=== PATIENT | female | born 1950 | race Caucasian/White ===

== ENCOUNTER 2020-10-04 10:47 | Inpatient (IN) | payer OTHER, MEDICARE ==
--- OUTSIDE RECORDS SUMMARY | 2020-10-04 10:51 | XMS REPORT | Continuity of Care Document ---
:1950 Author Organization [facility] t Address [address] [place] [address] Care Team Providers Name Role Phone Ignacio Dennis Primary Care Physician POLLY Attending Clinician Unavailable Jorge PINTO, Gene Attending Clinician Tanika Gallegos NP Attending Clinician IAIN CARDENAS Attending Clinician Unavailable PISKLAK Admitting Clinician Unavailable IAIN CARDENAS Admitting Clinician Unavailable Problems Condition Condition Condition Status Onset Resolution Last Treating Co mments Source Name Details Category Date Date Treatment Clinician Date PAD PAD Disease Active [facility]ra 02-27 Kaelyn kes - l artery l artery 00:00: Medica l disease) disease) 00 Center Herpes Herpes Problem Active [facility] Hypokalemi Hypokalemi Problem Active [facility] Pneumoniti Pneumoniti Problem Active [facility] 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 Erythemato Gr oup emeli emeli Knee pain Knee Pain Problem Active [facility] Edema of Edema of Problem Active [facility] [facility] lower Lower da extremity Extremity Medi gregg Group Urgent Urgent Problem Active [facility] desire to Desire to da urinate [facility] Serum Serum Problem Active [facility] creatinine Creatinine da raised [facility] Allergies, Adverse Reactions, Alerts Allergy Allergy Status Severity Reaction(s) Onset Inactive Treating Comm ents Source Name Type Date Date Clinician Ritika Hudsoni [facility] - adverse [facility]: Medical reaction 00 Center s Codeine Allergy Active [facility] PENICILL Allergy Active [facility] to da substanc [facility] Social History Social Habit Start Date Stop Date Quantity Comments Source Sex Assigned At [facility] History [facility] - Alcohol Std Drinks [facility] Tobacco use and 2019-03-02 2019-03-[address] [facility] - exposure 00:00:00 00:00:00 [facility] Center Alcohol intake 2019-03-02 2019-03-02 Current [facility] es - 00:00:00 00:00:00 non-drinker of Medical Ce nter alcohol (finding) History SDOH 2019-02-27 2019-02-27 1 [facility] - Alcohol Frequency 00:00:00 00:00:00 [facility] Center Smoking Status Start Date Stop Date Source Light Tobacco Smoker [facility] Current some day smoker 2019-03-02 00:00:00 [facility] Medications Ordered Filled Start Stop Current Ordering Indication Dosage Frequency Signature Comments Components Source Medication Medication Date Date Medication? Clinician (SIG) Name Name gabapentin 2019-0 Yes 300mg QD Take [address] (NEURONTIN) 8-10 mg by [facility] - 300 MG 09:23: mouth Medical capsule 26 nightly. Center gabapentin 2019-0 Yes 800mg [id number] Take [address] (NEURONTIN) 8-10 [id number] mg by L ukes - 800 MG 09:23: 3D mouth 3 Medical tablet 26 (three) Center times daily. triamterene 2019-0 Yes 1{tbl} QD Take [address] -hydroCHLOR 8-10 tablet by Amy es - Othiazide 09:23: mouth Medical (MAXZIDE-25 26 daily. Center ) 37.5-25 mg per tablet albuterol 2019-0 Yes 1{puff} Inhale [address] HFA 8-10 puff by Bridget - (VENTOLIN 09:23: mouth via Med ical HFA) 90 26 inhaler Center mcg/actuati every 6 on inhaler (six) hours as needed for Wheezing. budesonide 2019-0 Yes 1{puff} Q.5D Inhale [address] (PULMICORT 8-10 puff by Bridget - FLEXHALER) 09:23: mouth via Me dical 90 26 inhaler 2 Center mcg/actuati (two) on inhaler times daily. clopidogrel 2019-0 Yes 75mg QD Take [address] [facility] (PLAVIX) 75 8-10 tablet (75 Kaelyn kes - mg tablet 00:00: mg total) Med ical 00 by mouth Center daily. apixaban 2019-0 Yes 5mg Q.5D Take [address] [facility] (ELIQUIS) 5 8-09 tablet (5 Amy es - mg Tab 00:00: mg total) Medica l tablet 00 by mouth 2 Center (two) times daily. acetaminoph 2019-0 Yes 1{tbl} Take [address] en-codeine 8-09 tablet by Jose s - (TYLENOL 00:00: mouth Medical #4) 300-60 00 every 4 Center mg per (four) tablet hours as needed for Pain. Max Daily Amount: 6 tablets acetaminoph acetaminoph No acetaminop [place] en 300 en 300 hen 300 da mg-codeine mg-codeine mg-codeine Medical 60 mg 60 mg 60 mg Group tablet tablet tablet albuterol albuterol No albuterol [place] sulfate HFA sulfate HFA sulfate da 90 90 HFA 90 Medical mcg/actuati mcg/actuati mcg/actuat Group on aerosol on aerosol ion inhaler inhaler aerosol inhaler alendronate alendronate No alendronat [facility] 35 mg 35 mg e 35 mg da tablet tablet tablet Medical Group alprazolam alprazolam No alprazolam [facility] 0.5 mg 0.5 mg 0.5 mg da tablet tablet tablet Medical Group amoxicillin amoxicillin No amoxicilli [facility] 500 500 n 500 da mg-potassiu mg-potassiu mg-potassi Medical m m um Group clavulanate clavulanate clavulanat 125 mg 125 mg e 125 mg tablet tablet tablet clarithromy clarithromy No clarithrom [facility] marissa 500 mg marissa 500 mg ycin 500 da tablet Take tablet Take mg tablet Medical 1 tablet 1 tablet Take 1 Group every 12 every 12 tablet hours by hours by every 12 oral route oral route hours by for 10 for 10 oral route days. days. for 10 days. clopidogrel clopidogrel No clopidogre [facility] 75 mg 75 mg l 75 mg da tablet tablet tablet Medical Group doxycycline doxycycline No doxycyclin [facility] hyclate 100 hyclate 100 e hyclate da mg tablet mg tablet 100 mg Med ical tablet Group Eliquis 5 Eliquis 5 No Eliquis 5 [facility] mg tablet mg tablet mg tablet da Medical Group esomeprazol esomeprazol No esomeprazo [place] e magnesium e magnesium le d a 40 mg 40 mg magnesium Medical capsule,del capsule,del 40 mg Group ayed ayed capsule,de release release layed Take 1 Take 1 release capsule capsule Take 1 every day every day capsule by oral by oral every day route for route for by oral 30 days. 30 days. route for 30 days. furosemide furosemide No furosemide [facility] 20 mg 20 mg 20 mg da tablet tablet tablet Medical Group gabapentin gabapentin No gabapentin [facility] 300 mg 300 mg 300 mg da capsule capsule capsule Medica l Group gabapentin gabapentin No gabapentin [place] 800 mg 800 mg 800 mg da tablet tablet tablet Medical Group hydrochloro hydrochloro No hydrochlor [facility] thiazide thiazide othiazide da 12.5 mg 12.5 mg 12.5 mg Medica l tablet Take tablet Take tablet Group 1 tablet 1 tablet Take 1 every day every day tablet by oral by oral every day route. route. by oral route. hydrocodone hydrocodone No hydrocodon [facility] 5 5 e 5 da mg-acetamin mg-acetamin mg-acetami Medical ophen 325 ophen 325 nophen 325 Group mg tablet mg tablet mg tablet hydroxychlo hydroxychlo No hydroxychl [facility] roquine 200 roquine 200 oroquine da mg tablet mg tablet 200 mg Med ical Take 1 Take 1 tablet Group tablet tablet Take 1 twice a day twice a day tablet by oral by oral twice a route. route. day by oral route. ibuprofen ibuprofen No ibuprofen [facility] 800 mg 800 mg 800 mg da tablet tablet tablet Medical Group lidocaine lidocaine No lidocaine [facility] 10 mg/mL (1 10 mg/mL (1 10 mg/mL da %) %) (1 %) Medical injection injection injection Group solution solution solution methylpredn methylpredn No methylpred [facility] isolone 4 isolone 4 nisolone 4 da mg tablets mg tablets mg tablets Medical in a dose in a dose in a dose Group pack pack pack metronidazo metronidazo No metronidaz [place] le 500 mg le 500 mg ole 500 mg da tablet Take tablet Take tablet Medical 1 tablet 1 tablet Take 1 Group twice a day twice a day tablet by oral by oral twice a route for route for day by 10 days. 10 days. oral route for 10 days. montelukast montelukast No montelukas [facility] 10 mg 10 mg t 10 mg da tablet tablet tablet Medical Group prednisone prednisone No prednisone [facility] 20 mg 20 mg 20 mg da tablet tablet tablet Medical Group ropinirole ropinirole No ropinirole [facility] 2 mg tablet 2 mg tablet 2 mg d a tablet Medical Group sulfamethox sulfamethox No sulfametho [facility] azole 800 azole 800 xazole 800 da mg-trimetho mg-trimetho mg-trimeth Medical prim 160 mg prim 160 mg oprim 160 Group tablet tablet mg tablet tramadol 50 tramadol 50 No tramadol [facility] mg tablet mg tablet 50 mg da tablet Medical Group triamterene triamterene No triamteren [facility] 37.5 37.5 e 37.5 da mg-hydrochl mg-hydrochl mg-hydroch Medical orothiazide orothiazide lorothiazi Group 25 mg 25 mg de 25 mg tablet tablet tablet Vital Signs Vital Name Observation Time Observation Value Comments Source BP Diastolic 2019-06-15 00:00:00 62 mm[Hg] [facility] Height 2019-06-15 00:00:00 65 [in_i] [facility] BMI (Body Mass 2019-06-15 00:00:00 15 kg/m2 [facility] Medical Index) Group BP Systolic 2019-06-15 00:00:00 132 [facility]Hg[facility] Body Weight 2019-06-15 00:00:00 90 [lb_av[facility] BP Diastolic 2019-04-16 00:00:00 64 mm[facility]Hg[facility] Height 2019-04-16 00:00:00 65 [in_i] [facility] BMI (Body Mass 2019-04-16 00:00:00 15 kg/m2 [facility] Medical Index) Group BP Systolic 2019-04-16 00:00:00 139 mm[Hg] [facility] Body Weight 2019-04-16 00:00:00 90 [lb_av] [facility] Procedures Procedure Date / Time Performed Performing Clinician Sour e Colonoscopy 2019-04-01 00:00:00 [facility] Upper GI Endoscopy 2019-04-01 00:00:00 [facility] Plan of Care Planned Activity Planned Date Details Comments Source Future Scheduled 2020-03-22 INFLUENZA VACCINE (#1) [facility] Test 00:00:00 [code = INFLUENZA Medical Ce nter VACCINE (#1)] Future Scheduled 2018-09-[address] [facility] [facility] - Test 00:00:00 WELLNESS (YEAR 2 or Medical Center FIRST YEAR if no IPPE) [code = MEDICARE ANNUAL WELLNESS (YEAR 2 or FIRST YEAR if no IPPE)] Future Scheduled 2017 PNEUMOCOCCAL 65+ [facility] - Test 00:00:00 (1 of 1 - Medical Center [id number]) [code = PNEUMOCOCCAL 65+ YRS (1 of 1 - [id number] PCV13)] Future Scheduled [address] [facility] - Test 00:00:00 [facility] breast (procedure) [code = 559084870] Future Scheduled [address] [facility] - Test 00:00:00 malignant neoplasm of [facility] colon (procedure) [code = 426361333] Encounters Start End Encounter Admission Attending Care Care Encounter Source Date/Time Date/Time Type Type Clinicians Facility Department ID 2020-08-24 2020-08-26 Inpatient JENNY MATIAS [facility] [id number] [place] 00:00:00 00:00:[address] 2020-04-01 2020-04-01 [facility] [id number] 00:00:00 00:00:00 [facility] [id number] [place] [id number] Professio [phone] [address] 2019-10-27 2019-10-28 [facility] [id number] 09:20:26 08:23:58 ne Visit Watson Bates [id number] [place] [id number] Professio [id number] [address] 2019-06-15 2019-06-15 Stevo GUNDERSON [place] - [id number] M [facility] 00:00:00 00:00:00 Enrico DO: [facility] cam[facility] ybarra [address] [place] [address] - [address] [address] , Ph. [phone] 2019-04-16 2019-04-16 Stevo GUNDERSON [place] - [id number] M [facility] 00:00:00 00:00:00 Enrico DO: [facility] ybarra [address] [place] [address] [address] [address] , Ph. [phone] 2019-03-09 2019-03-09 Office MOODY Gallegos [id number] 14:17:45 15:50:13 Visit Franco AMBULATOR [id number] Cenea Y 0.2.7.2.686 [phone] [id number] Results Test Description Test Time Test Comments Results Result Comments Source Comprehensive metabolic 2000 panel - Serum or Plasma 2019-03 11:12:00 Test Item Value Reference Range Interpretation Comme nts Glucose [Mass/volume] in Serum or Plasma (test code = 230 mg/dL 82-115 H 2345-7) Urea nitrogen [Mass/volume] in Serum or Plasma (test code = 55 mg/d L 8-23 H 3094-0) osmolality calculated, serum (test code = osmolality 293 2 80-300 calculated, serum) creatinine (test code = creatinine) 1.5 mg/dL 0.50-0.90 H glomerular filtration rate (test code = glomerular 34.74 L filtration rate) Urea nitrogen/Creatinine [Mass Ratio] in Serum or Plasma 36.7 12-20 H (test code = 3097-3) sodium level (test code = sodium level) 135 mmol/L 135-145 potassium level (test code = potassium level) 5.9 mmol/L 3.5-5.2 H chloride level (test code = chloride level) 106 mmol/L 98-108 CO2 (test code = CO2) 13 mmol/L 21-32 L anion gap (test code = anion gap) 21.9 mEq/L 12-20 H calcium level (test code = calcium level) 8.7 mg/dL 8.8-10.2 L total protein (test code = total protein) 5.7 g/dL 6.6-8.7 L albumin (test code = albumin) 3.5 g/dL 3.5-5.2 globulin (test code = globulin) 2.2 gm/dL A/G ratio (test code = A/G ratio) 1.6 >1.0 bilirubin,total (test code = bilirubin,total) <0.3 0.0-1.2 AST/SGOT (test code = AST/SGOT) 12 U/L 15-32 L Alanine aminotransferase [Enzymatic activity/volume] in 8 U/L 0-33 Serum or Plasma (test code = 1742-6) Alkaline phosphatase [Enzymatic activity/volume] in Serum or 60 U/L 35-105 Plasma (test code = 6768-6) [facility] [Enzymatic activity/volume] in Serum or [id number] 11:12:00 Test Item Value Reference Range Interpretation Comments creatine kinase (test code = creatine 102 U/L 20-180 kinase) [facility]atriuretic peptide.B prohormone N-Terminal [Mass/volume] in Serum or [id number] 11:12:00 Test Item Value Reference Range Interpretation Comments N-term pro natriuretic peptide 2524 pg/mL 0-125 H (test code = N-term pro natriuretic peptide) [facility] [Mass/volume] in [id number] 11:12:00 Test Item Value Reference Range Interpretation Comments cardiac troponin I (test code = cardiac <0.30 0.0-0.5 troponin I) [facility].MB [Mass/volume] in Serum or Plasma 2019-03-30 11:12:00 Test Item Value Reference Range Interpretation Comments mass creatinine kinase-mb (test 5.3 NG/mL 0.0-3.6 H code = mass creatinine kinase-mb) [facility] [id number] 06:43:00 Test Item Value Reference Range Interpretation Comments SODIUM (BEAKER) 135 meq/L 136-145 L (test code = 381) POTASSIUM (BEAKER) 4.4 meq/L 3.5-5.1 (test code = 379) CHLORIDE (BEAKER) 110 meq/L 98-107 H (test code = 382) CO2 (BEAKER) (test 17 meq/L 22-29 L code = 355) BLOOD UREA NITROGEN 23 mg/dL 7-21 H (BEAKER) (test code = 354) CREATININE (BEAKER) 0.88 mg/dL 0.57-1.25 (test code = 358) GLUCOSE RANDOM 69 mg/dL 70-105 L (BEAKER) (test code = 652) CALCIUM (BEAKER) 8.6 mg/dL 8.4-10.2 (test code = 697) EGFR (BEAKER) (test 64 mL/min/1.73 ESTIMA OG GFR IS code = 1092) sq m NOT ACCURATE CREATININE CLEARANCE IN PREDICTING GLOMERULAR FILTRATION RATE . ESTIMATED GFR I S NOT APPLICABLE FOR DIALYSIS PATIEN TS. CBC (HEMOGRAM ONLY)2019-02-28 05:40:00 Test Item Value Reference Range Interpretation Comments WHITE BLOOD CELL COUNT (BEAKER) 8.1 K/ L 3.5-10.5 (test code = 775) RED BLOOD CELL COUNT (BEAKER) 2.72 M/ L 3.93-5.22 L (test code = 761) HEMOGLOBIN (BEAKER) (test code = 8.6 GM/DL 11.2-15.7 L 410) HEMATOCRIT (BEAKER) (test code = 26.9 % 34.1-44.9 L 411) MEAN CORPUSCULAR VOLUME (BEAKER) 98.9 fL 79.4-94.8 H (test code = 753) MEAN CORPUSCULAR HEMOGLOBIN 31.6 pg 25.6-32.2 (BEAKER) (test code = 751) MEAN CORPUSCULAR HEMOGLOBIN CONC 32.0 GM/DL 32.2-35.5 L (BEAKER) (test code = 752) RED CELL DISTRIBUTION WIDTH 15.5 % 11.7-14.4 H (BEAKER) (test code = 412) PLATELET COUNT (BEAKER) (test 422 K/CU MM 150-450 code = 756) MEAN PLATELET VOLUME (BEAKER) 9.2 fL 9.4-12.3 L (test code = 754) NUCLEATED RED BLOOD CELLS 0 /100 WBC 0-0 (BEAKER) (test code = 413) [id number] 17:06:00 Test Item Value Reference Range Interpretation Comments ACTIVATED CLOTTING TIME 318 sec TEST ED AT [place] [address] ([facility]) (test code = JENNA BOWEN [facility]) [id number] 16:47:00 Test Item Value Reference Range Interpretation Comments ACTIVATED CLOTTING TIME 180 sec TEST ED AT [place] [address] ([place]) (test code = JENNA Penny [place] [address]) [id number]
[2020-10-04 14:29] LABS: Absolute Lymphocytes (CBC) 0.9 K/uL (0.7-4.9); Basophils % 0.4 % (0-1.3); Hematocrit 21.9 % (36.0-45.0); Lymphocytes % 4.7 % (15.3-44.8); RBC Red Blood Cell Count 2.32 M/uL (3.86-4.86)
[2020-10-04] MEDS ORDERED: FENTANYL CITR 100 MCG/2 ML ONE (14:38)
[2020-10-04] MEDS ORDERED: CEFTRIAXONE/SWI 1gm 1 GM/10 ML SYR ONE (14:39)
[2020-10-04] MEDS ORDERED: NA CHLORIDE 0.9% 50 ML ONE (14:39)
[2020-10-04 15:00] LABS: Anisocytosis SLIGHT; Blood Morphology Comment NOTED (NOT SEEN); Platelet Estimate INCR; Polychromasia SLIGHT; Stomatocytes 1+
[2020-10-04 15:02] LABS: Potassium 2.9 mmol/L (3.5-5.1)
--- NOTE | 2020-10-04 15:32 | EDPHYS ---
Physician Documentation [facility] Name: Nancy Carlos Age: 69 yrs Sex: Female : 1950 Arrival Date: 10/04/2020 Time: 10:57 Bed 15 Private MD: Janusz Corral ED Physician HPI: 10/04 15:31 This 69 yrs old Female presents to ER via Wheelchair with complaints of kdr Abnormal Lab Results - low wbc. 15:31 The patient was sent to the ED when it was discovered that her Hgb was low and she was kdr scheduled for surgery (Right AKA) today with Dr. Weber. Onset: The symptoms/episode began/occurred at an unknown time. Severity of symptoms: At their worst the symptoms were moderate severe just prior to arrival, in the emergency department the symptoms are unchanged. The patient has experienced similar episodes in the past, chronically. The patient has been recently seen by a physician: the patient's primary care provider. Historical: - Allergies: 11:14 sulfamethoxazole (bulk); sv 11:14 Bactrim; sv - PMHx: 11:14 COPD; Asthma; Myocardial infarction; Lupus; sv - PSHx: 11:14 toe amputations; cardiac stents; Tubal ligation; sv - Immunization history:: Client reports receiving the 1st dose of the Covid vaccine, Pneumococcal vaccine is up to date, Flu vaccine is up to date. - Social history:: Smoking status: Patient reports the use of cigarette tobacco products, smokes one pack cigarettes per day. ROS: 15:31 Constitutional: Negative for fever, chills, and weight loss, Eyes: Negative for injury, kdr pain, redness, and discharge, Neck: Negative for injury, pain, and swelling, Cardiovascular: Negative for chest pain, palpitations, and edema, Abdomen/GI: Negative for abdominal pain, nausea, vomiting, diarrhea, and constipation, Back: Negative for injury and pain, : Negative for injury, bleeding, discharge, and swelling, Neuro: Negative for headache, weakness, numbness, tingling, and seizure activity. Psych: Negative for depression, anxiety, suicide ideation, homicidal ideation, and hallucinations, Allergy/Immunology: Negative for hives, rash, and allergies, Endocrine: Negative for neck swelling, polydipsia, polyuria, polyphagia, and marked weight changes, Hematologic/Lymphatic: Negative for swollen nodes, abnormal bleeding, and unusual bruising. 15:31 Respiratory: Positive for dyspnea on exertion, shortness of breath, at rest. Exam: 15:31 Constitutional: This is a well developed, well nourished patient who is awake, alert, kdr and in no acute distress. Head/Face: Normocephalic, atraumatic. Eyes: Pupils equal round and reactive to light, extra-ocular motions intact. Lids and lashes normal. Conjunctiva and sclera are non-icteric and not injected. Cornea within normal limits. Periorbital areas with no swelling, redness, or edema. Neck: Trachea midline, no thyromegaly or masses palpated, and no cervical lymphadenopathy. Supple, full range of motion without nuchal rigidity, or vertebral point tenderness. No Meningismus. Chest/axilla: Normal chest wall appearance and motion. Nontender with no deformity. No lesions are appreciated. Cardiovascular: Regular rate and rhythm with a normal S1 and S2. No gallops, murmurs, or rubs. Normal PMI, no JVD. No pulse deficits. Abdomen/GI: Soft, non-tender, with normal bowel sounds. No distension or tympany. No guarding or rebound. No evidence of tenderness throughout. Back: No spinal tenderness. No costovertebral tenderness. Full range of motion. Skin: Warm, dry with normal turgor. Normal color with no rashes, no lesions, and no evidence of cellulitis. Neuro: Awake and alert, GCS 15, oriented to person, place, time, and situation. Cranial nerves II-XII grossly intact. Motor strength 5/5 in all extremities. Sensory grossly intact. Cerebellar exam normal. Normal gait. Psych: Awake, alert, with orientation to person, place and time. Behavior, mood, and affect are within normal limits. 15:31 Respiratory: the patient does not display signs of respiratory distress, Respirations: intercostal retractions, shallow respirations, that is mild, Breath sounds: rales, that are mild, are scattered, decreased breath sounds, are scattered, rhonchi, that are mild, are heard diffusely. 15:57 ECG was reviewed by the Attending Physician. kdr Vital Signs: 11:15 BP 96 / 42; Pulse 80; Resp 16; Temp 98.5; Pulse Ox 95% ; Weight 45.36 kg; Height 5 ft. sv 4 in. (162.56 cm); 14:30 BP 96 / 48; Pulse 79; Resp 17; Pulse Ox 98% on 1 lpm NC; zb 15:14 BP 94 / 44; Pulse 73; Resp 18; Pulse Ox 93% 1 lpm ; zb 16:14 BP 103 / 46; Pulse 93; Resp 16; Pulse Ox 94% on 1 lpm NC; zb 17:14 BP 82 / 35; Pulse 63; Resp 16; Pulse Ox 95% on R/A; zb 17:45 BP 87 / 70; Pulse 81; Resp 18; Pulse Ox 97% on 1 lpm NC; zb 18:16 BP 102 / 75; Pulse 90; Resp 20; Pulse Ox 95% 1 lpm ; zb 18:43 BP 104 / 43; Pulse 98; Resp 18; Pulse Ox 98% on 1 lpm NC; zb 19:00 BP 94 / 42; Pulse 78; Resp 18; Pulse Ox 98% on 2 lpm NC; zb 20:00 BP 101 / 44; Pulse 81; Resp 18; Pulse Ox 91% on R/A; zb 21:00 BP 107 / 45; Pulse 84; Resp 18; Pulse Ox 92% on R/A; zb 22:30 BP 106 / 58; Pulse 81; Resp 20; Pulse Ox 91% on R/A; zb 23:35 BP 105 / 49; Pulse 87; Resp 18; Pulse Ox 94% on R/A; zb 10/05 00:09 BP 111 / 48; Pulse 83; Resp 18; Pulse Ox 94% on R/A; zb 10/04 11:15 Body Mass Index 17.17 (45.36 kg, 162.56 cm) sv MDM: 10/04 15:31 Patient medically screened. kdr 15:31 Data reviewed: vital signs, nurses notes, lab test result(s), radiologic studies. kdr Counseling: I had a detailed discussion with the patient and/or guardian regarding: the historical points, exam findings, and any diagnostic results supporting the discharge/admit diagnosis, lab results, radiology results, the need for further work-up and treatment in the hospital. 10/04 13:43 Order name: CBC with Diff kdr 10/04 13:43 Order name: Chem 7; Complete Time: 15:08 kdr 10/04 13:44 Order name: CBC with Automated Diff; Complete Time: 15:08 EDMS 10/04 13:54 Order name: Type And Screen kdr 10/04 14:41 Order name: Manual Differential; Complete Time: 15:08 EDMS 10/04 15:12 Order name: PRBC kdr 10/04 15:12 Order name: ABO/RH typing EDMS 10/04 15:12 Order name: Antibody Screen EDUT 10/04 15:15 Order name: Bb Add On bd 10/04 19:55 Order name: Blood Culture Adult (2) la1 10/04 19:55 Order name: Procalcitonin la1 10/04 19:55 Order name: Lactate la1 10/04 21:40 Order name: Lactate; Complete Time: 02:36 EDMS 10/04 13:56 Order name: CXR XRAY; Complete Time: 15:55 kdr 10/04 22:06 Order name: Procalcitonin; Complete Time: 02:36 EDMS 10/04 23:14 Order name: Blood Culture EDUT 10/05 06:04 Order name: CBC with Automated Diff EDMS 10/05 06:13 Order name: Lactate EDUT 10/05 06:24 Order name: Procalcitonin EDUT 10/05 06:34 Order name: Comprehensive Metabolic Panel EDUT 10/05 06:34 Order name: Magnesium EDUT 10/04 13:56 Order name: EKG - Nurse/Tech; Complete Time: 14:18 kdr 10/04 14:00 Order name: EKG; Complete Time: 14:01 sv 10/04 16:09 Order name: Labs - recollect needed: recollect t\T\s, lab will come to recollect; bd Complete Time: 16:29 EC:57 Rate is 78 beats/min. Rhythm is regular, Sinus Rhythm with No ectopy. QRS Economy is kdr Normal. AK interval is normal. QRS interval is normal. QT interval is normal. Clinical impression: NSR w/ Non-specific ST/T Changes. Administered Medications: Discontinued: NS 0.9% 1000 ml IV at 75 ml/hr continuous 14:28 Drug: Rocephin - (cefTRIAXone) 1 grams Route: IVPB; Infused Over: 30 mins; Site: right zb antecubital; 14:28 Drug: fentaNYL (PF) 25 mcg Route: IVP; Site: right antecubital; zb 15:30 Drug: fentaNYL (PF) 25 mcg Route: IVP; Site: right antecubital; zb 15:49 Drug: Potassium Chloride 20 mEq Route: IV; Rate: calculated rate; Site: right zb antecubital; 16:29 Drug: Potassium Chloride 40 mEq Route: PO; zb 17:01 Drug: NS 0.9% 1000 ml Route: IV; Rate: 1000 ml; Site: right antecubital; zb 18:09 Drug: vancoMYCIN 1 grams Route: IVPB; Infused Over: 2 hrs; Site: left forearm; zb 18:09 Drug: NS 0.9% 1000 ml Route: IV; Rate: 75 ml/hr; Site: left antecubital; zb 19:11 Drug: NS 0.9% 1000 ml Route: IV; Rate: 1000 ml; Site: left forearm; zb 19:57 Drug: NS 0.9% 1000 ml Route: IV; Rate: 125 ml/hr; Site: right antecubital; zb Disposition: 10/04/20 15:31 Hospitalization ordered by Lebron Last for Inpatient Admission. Preliminary diagnosis are Gangrene, not elsewhere classified, Osteomyelitis, Anemia, unspecified. - Bed requested for [facility] ER HOLD. - Status is Inpatient Admission. sv - Condition is Fair. - Problem is an ongoing problem. - Symptoms are unchanged. Signatures: Dispatcher [employer] EDUT Kristy Forte Stephanie, RN RN sv Woody, Diana, RN RN dw Rittger, Kevin, MD MD kdr Attema, Lee, LINE SERVICE PERSON-C LINE SERVICE PERSON-Annita Sharif RN RN zb Corrections: (The following items were deleted from the chart) 11:15 11:14 Social history: Smoking status: Patient reports the use of cigarette tobacco sv products, smokes one-half pack cigarettes per day, sv 15:19 13:55 Type and Screen ordered. [facility] EDUT 16:45 15:31 Hospitalization Ordered by Lebron Last DO for Inpatient Admission. Preliminary dw diagnosis is Gangrene, not elsewhere classified; Osteomyelitis; Anemia, unspecified. Bed requested for Telemetry/MedSurg (Inpatient). Status is Inpatient Admission. Condition is Fair. Problem is an ongoing problem. Symptoms are unchanged. kdr 19:52 16:45 10/04/2020 15:31 Hospitalization Ordered by Lebron Last DO for Inpatient la1 Admission. Preliminary diagnosis is Gangrene, not elsewhere classified; Osteomyelitis; Anemia, unspecified. Bed requested for Telemetry/MedSurg (Inpatient). Status is Inpatient Admission. Condition is Fair. Problem is an ongoing problem. Symptoms are unchanged. dw 10/05 08:37 10/04 19:52 10/04/2020 15:31 Hospitalization Ordered by Lebron Last DO for Inpatient sv Admission. Preliminary diagnosis is Gangrene, not elsewhere classified; Osteomyelitis; Anemia, unspecified. Bed requested for [facility] ER HOLD. Status is Inpatient Admission. Condition is Fair. Problem is an ongoing problem. Symptoms are unchanged. la1 10/05 11:22 08:37 10/04/2020 15:31 Hospitalization Ordered by Lebron Last DO for Inpatient sv Admission. Preliminary diagnosis is Gangrene, not elsewhere classified; Osteomyelitis; Anemia, unspecified. Bed requested for [facility] ER HOLD. Status is Inpatient Admission. Condition is Fair. Problem is an ongoing problem. Symptoms are unchanged. sv
--- NOTE | 2020-10-04 15:32 | ER ---
Nurse's Notes [facility] Name: Nancy Carlos Age: 69 yrs Sex: Female : 1950 Arrival Date: 10/04/2020 Time: 10:57 Bed 15 Private MD: Janusz Corral Diagnosis: Gangrene, not elsewhere classified;Osteomyelitis;Anemia, unspecified Presentation: 10/04 11:13 Chief complaint: Patient's son or daughter states: Dr Weber asked pt to come to the sv ER because she has a low WBC. Pt had pre-op bloodwork done yesterday for an upcoming surgery to get her RLE amputated. Coronavirus screen: Client denies travel out of the [place] in the last 14 days. At this time, the client does not indicate any symptoms associated with coronavirus-19. Ebola Screen: No symptoms or risks identified at this time. Risk Assessment: Do you want to hurt yourself or someone else? Patient reports no desire to harm self or others. Onset of symptoms was October 04, 2020. 11:13 Method Of Arrival: Wheelchair sv 11:13 Acuity: LUCIAN 3 sv 11:15 Initial Sepsis Screen: Does the patient meet any 2 criteria? No. Patient's initial sv sepsis screen is negative. Does the patient have a suspected source of infection? No. Patient's initial sepsis screen is negative. Historical: - Allergies: 11:14 sulfamethoxazole (bulk); sv 11:14 Bactrim; sv - PMHx: 11:14 COPD; Asthma; Myocardial infarction; Lupus; sv - PSHx: 11:14 toe amputations; cardiac stents; Tubal ligation; sv - Immunization history:: Client reports receiving the 1st dose of the Covid vaccine, Pneumococcal vaccine is up to date, Flu vaccine is up to date. - Social history:: Smoking status: Patient reports the use of cigarette tobacco products, smokes one pack cigarettes per day. Screenin:20 Abuse screen: Denies threats or abuse. Nutritional screening: No deficits noted. jd3 Tuberculosis screening: No symptoms or risk factors identified. Fall Risk Ambulatory Aid- None/Bed Rest/Nurse Assist (0 pts). Gait- Normal/Bed Rest/Wheelchair (0 pts) Mental Status- Oriented to own ability (0 pts). Total Stanley Fall Scale indicates No Risk (0-24 pts). Assessment: 13:20 General: Appears in no apparent distress. comfortable, Behavior is calm, cooperative, zb appropriate for age. Pain: Complains of pain in right leg. Neuro: Level of Consciousness is awake, alert, obeys commands, Oriented to person, place, time. Cardiovascular: Patient's skin is warm and dry. Respiratory: Airway is patent Respiratory effort is even, unlabored, Respiratory pattern is symmetrical, tachypnea. GI: Abdomen is round non-distended. : No signs and/or symptoms were reported regarding the genitourinary system. EENT: No deficits noted. Derm: No signs and/or symptoms reported regarding the dermatologic system. Derm: Skin is fragile, is thin, with poor turgor Skin is dry, Skin is normal, Skin temperature is warm. Musculoskeletal: Range of motion: intact in all extremities. 14:00 Reassessment: Patient appears in no apparent distress at this time. Patient and/or zb family updated on plan of care and expected duration. Pain level reassessed. Patient is alert, oriented x 3, equal unlabored respirations, skin warm/dry/pink. patient remains in pain given pain medication. no changes at this time. 15:00 Reassessment: Patient appears in no apparent distress at this time. Patient and/or zb family updated on plan of care and expected duration. Pain level reassessed. Patient is alert, oriented x 3, equal unlabored respirations, skin warm/dry/pink. 16:00 Reassessment: Patient appears in no apparent distress at this time. Patient and/or zb family updated on plan of care and expected duration. Pain level reassessed. Patient is alert, oriented x 3, equal unlabored respirations, skin warm/dry/pink. patient resting in bed no changes at this time pain managed. 17:00 Reassessment: Patient appears in no apparent distress at this time. Patient and/or zb family updated on plan of care and expected duration. Pain level reassessed. Patient is alert, oriented x 3, equal unlabored respirations, skin warm/dry/pink. patient states pain is managed at this time. sheets changed. 18:00 Reassessment: blood pressure decreasing IV bolus given. zb 18:45 Reassessment: notified dr. darling of patient blood pressure. zb Vital Signs: 11:15 BP 96 / 42; Pulse 80; Resp 16; Temp 98.5; Pulse Ox 95% ; Weight 45.36 kg; Height 5 ft. sv 4 in. (162.56 cm); 14:30 BP 96 / 48; Pulse 79; Resp 17; Pulse Ox 98% on 1 lpm NC; zb 15:14 BP 94 / 44; Pulse 73; Resp 18; Pulse Ox 93% 1 lpm ; zb 16:14 BP 103 / 46; Pulse 93; Resp 16; Pulse Ox 94% on 1 lpm NC; zb 17:14 BP 82 / 35; Pulse 63; Resp 16; Pulse Ox 95% on R/A; zb 17:45 BP 87 / 70; Pulse 81; Resp 18; Pulse Ox 97% on 1 lpm NC; zb 18:16 BP 102 / 75; Pulse 90; Resp 20; Pulse Ox 95% 1 lpm ; zb 18:43 BP 104 / 43; Pulse 98; Resp 18; Pulse Ox 98% on 1 lpm NC; zb 19:00 BP 94 / 42; Pulse 78; Resp 18; Pulse Ox 98% on 2 lpm NC; zb 20:00 BP 101 / 44; Pulse 81; Resp 18; Pulse Ox 91% on R/A; zb 21:00 BP 107 / 45; Pulse 84; Resp 18; Pulse Ox 92% on R/A; zb 22:30 BP 106 / 58; Pulse 81; Resp 20; Pulse Ox 91% on R/A; zb 23:35 BP 105 / 49; Pulse 87; Resp 18; Pulse Ox 94% on R/A; zb 03 00:09 BP 111 / 48; Pulse 83; Resp 18; Pulse Ox 94% on R/A; zb 10/04 11:15 Body Mass Index 17.17 (45.36 kg, 162.56 cm) sv ED Course: 10/04 10:57 Patient arrived in ED. am2 10:57 Janusz Corral MD is Private Physician. am2 11:14 Triage completed. sv 11:15 Arm band placed on. sv 12:26 Jesús Murphy MD is Attending Physician. kdr 12:47 Diane Stauffer RN is Primary Nurse. zb 14:20 EKG done, by ED staff, reviewed by Jesús Murphy MD. jd3 14:37 CXR XRAY In Process Unspecified. EDMS 15:05 Notified ED physician of a critical lab result(s). potassium of 2.9. jd3 15:30 Lebron Darling DO is Hospitalizing Provider. kdr 17:06 Patient has correct armband on for positive identification. Placed in gown. Bed in low zb position. Call light in reach. waiter/waitress dining car on. Pulse ox on. NIBP on. 17:30 Inserted saline lock: 20 gauge in left wrist, using aseptic technique. Flushed left sv with 5 ml normal saline. 10/05 00:30 No provider procedures requiring assistance completed. Patient admitted, IV remains in rr5 place. intact, No redness/swelling at site. 08:49 Attending Physician role handed off by Jesús Murphy MD tw2 08:49 Primary Nurse role handed off by Diane Stauffer RN tw2 09:05 Nickie Caraballo RN is Primary Nurse. vg1 09:29 Georgi Rosa MD is Attending Physician. ps1 Administered Medications: Discontinued: NS 0.9% 1000 ml IV at 75 ml/hr continuous 10/04 14:28 Drug: Rocephin - (cefTRIAXone) 1 grams Route: IVPB; Infused Over: 30 mins; Site: right zb antecubital; 14:28 Drug: fentaNYL (PF) 25 mcg Route: IVP; Site: right antecubital; zb 15:30 Drug: fentaNYL (PF) 25 mcg Route: IVP; Site: right antecubital; zb 15:49 Drug: Potassium Chloride 20 mEq Route: IV; Rate: calculated rate; Site: right zb antecubital; 16:29 Drug: Potassium Chloride 40 mEq Route: PO; zb 17:01 Drug: NS 0.9% 1000 ml Route: IV; Rate: 1000 ml; Site: right antecubital; zb 18:09 Drug: vancoMYCIN 1 grams Route: IVPB; Infused Over: 2 hrs; Site: left forearm; zb 18:09 Drug: NS 0.9% 1000 ml Route: IV; Rate: 75 ml/hr; Site: left antecubital; zb 19:11 Drug: NS 0.9% 1000 ml Route: IV; Rate: 1000 ml; Site: left forearm; zb 19:57 Drug: NS 0.9% 1000 ml Route: IV; Rate: 125 ml/hr; Site: right antecubital; zb Medication: 10/05 01:40 Blood products: PRBCs X 1 unit given. wrist band [id number] unit # [id number] PRBC rr5 type a positive exp 10/25/2020, double cheked by diane RN See transfusion record. Outcome: 10/04 15:31 Decision to Hospitalize by Provider. kdr 10/05 00:30 Admitted to ER Hold. Please see [facility] for further documentation. rr5 Condition: stable Instructed on the need for admit. 08:37 Patient left the ED. sv 11:22 Patient left the ED. sv Signatures: Dispatcher [employer] Lara Jurado, RN RN sv Jesús Murphy MD MD kdr Wise, Tara, RN RN tw2 Marichuy White Jonathon RN RN jd3 Georgi Rosa MD MD ps1 Roque, Raymond, RN RN rr5 Nickie Caraballo RN RN [email or web address] Diane Stauffer RN RN zb Corrections: (The following items were deleted from the chart) 10/04 11:15 11:14 Social history: Smoking status: Patient reports the use of cigarette tobacco sv products, smokes one-half pack cigarettes per day, sv
--- NOTE | 2020-10-04 15:51 | RAD REPORT ---
EXAM DESCRIPTION: RAD - Chest Single View - 10/04/2020 2:37 pm CLINICAL HISTORY: Pre-op for right AKA Chest pain. COMPARISON: Chest Pa And Lat (2 Views) dated 10/03/2020 FINDINGS: Portable technique limits examination quality. The lungs are mildly emphysematous grossly clear. The heart is normal in size. No displaced fractures . IMPRESSION: Mild diffuse COPD.
[2020-10-04] MEDS ORDERED: KCL 20 MEQ/100 mL IVPB 20 MEQ/100 ML BAG IV ONE (15:58)
[2020-10-04] MEDS ORDERED: POTASSIUM CL SA 10 MEQ TAB PO ONE (15:59)
[2020-10-04] MEDS ORDERED: VANCOMYCIN/NS 1 gm 1 GM/250 ML BAG IV ONE (16:00)
--- NOTE | 2020-10-04 16:25 | P.HP ---
Certification for Inpatient Patient admitted to: Inpatient With expected LOS: >2 Midnights Patient will require the following post-hospital care: Other (home vs SNF) Practitioner: I am a practitioner with admitting privileges, knowledge of patient current condition, hospital course, and medical plan of care. Services: Services provided to patient in accordance with Admission requirements found in Title 42 Section 412.3 of the Code of Federal Regulations Patient History Date of Service: 10/04/20 Primary Care Provider: Dr. Corral; Surgery-Dr. Weber Reason for admission: Abnormal lab History of Present Illness: 69 yo CF with history of osteomyelitis to the right foot. She has been seen by Surgery-Dr. Weber for potential surgery-above knee amputation within the next couple of days. She had lab drawn recently and found to have some abnormal lab at which point she was told to go to the ER to address. She denies any fever or chills. She has pain to the right lower ext. No nausea, vomiting and abdominal pain. In the ER she was found to be anemic with hemoglobin of 7.3. Prior hemoglobin was around 6. WBC was 19. NA 139, K 2.9, BUN 34, creatinine 1.56 and GFR was 33. BP low. Patient appears dehydrated. Patient given IV antibiotic therapy in the emergency room. ER physician spoke to surgeon. Surgeon desires patient to be admitted for treatment an eventual surgery. Allergies sulfamethoxazole [From Bactrim] Allergy (Verified 10/03/20 16:35) Hives, throat swell trimethoprim [From Bactrim] Allergy (Verified 10/03/20 16:35) Hives, throat swell Home medications list reviewed: Yes Home Medications: Albuterol Inhaler [Ventolin Inhaler] 2 puff IH Q6H PRN 10/03/20 Baclofen 10 mg PO BID 10/03/20 Budesonide [Pulmicort] 1 mg IH DAILY 10/03/20 Budesonide/Formoterol Fumarate [Symbicort 160-4.5 Mcg Inhaler] 2 puff IH BID 10/03/20 Gabapentin 600 mg PO BID 10/03/20 Hydrocodone 5/APAP 325 [Lamont 5/325] 1 tab PO Q6H PRN 10/03/20 Hydroxychloroquine [Plaquenil] 200 mg PO DAILY 10/03/20 Mupirocin Oint [Bactroban 2% Ointment] 22 gm TP DAILY 10/03/20 Ondansetron [Zuplenz] 4 mg PO BID 10/03/20 Perforomist 2 ml NEB PRN PRN 10/03/20 Ropinirole HCl [Requip] 1 mg PO BEDTIME 10/03/20 clindamycin HCL [Clindamycin HCl] 300 mg PO DAILY 10/03/20 - Past Medical/Surgical History Diabetic: No -: COPD -: Lupus -: Anemia of Chronic disease -: Chronic renal disease -: Tobacco abuse -: TOE AMPUTATION ON RIGHT FOOT -: TUBAL LIGATION -: STENTS IN RIGHT FEMORAL ARTERY -: CARDIAC STENT Psychosocial/ Personal History: Patient lives at home - Family History Father -: Heart disease Mother Notes: AORTIC ANEURYSM - Social History Smoking Status: Heavy Tobacco smoker (>10 cigarettes/day) Smoking therapy provided: Yes Patient receptive to therapy: Yes Alcohol use: No CD- Drugs: No Caffeine use: Yes Place of Residence: Home Review of Systems General: Weakness, Malaise, As per HPI Eyes: Unremarkable ENT: Unremarkable Respiratory: Unremarkable Cardiovascular: Unremarkable Gastrointestinal: Unremarkable Genitourinary: Unremarkable Musculoskeletal: As per HPI Integumentary: As per HPI Neurological: Unremarkable Lymphatics: Unremarkable Physical Examination - Physical Exam General: Alert, In no apparent distress, Oriented x3, Cooperative, Cachectic, Demented, Other (Patient is not well kept) HEENT: Atraumatic, Other (muscle wasting noted) Neck: Supple Respiratory: Clear to auscultation bilaterally, Normal air movement Cardiovascular: Normal pulses, Regular rate/rhythm Gastrointestinal: Normal bowel sounds, Non-distended, No tenderness, No masses, No rebound, No guarding Integumentary: Other (muscle wasting noted throughout. some chronic changes to the lower ext. Bandage in place. Some gangrenous chnages to the toes. Prior right great toe amputation. ) Neurological: Normal speech, Normal strength at 5/5 x4 extr, Normal tone, Normal affect - Studies Laboratory Data (last 24 hrs) 10/04/20 14:16: Sodium 139, Potassium 2.9 L*, BUN 34 H, Creatinine 1.56 H, Glucose 123 H 10/04/20 14:16: WBC 19.10 H, Hgb 7.3 L*, Hct 21.9 L, Plt Count 471 H Assessment and Plan - Plan Impression: Right osteomyelitis and gangrene to the foot Acute on chronic renal failure stage 3 Anemia of chronic disease COPD Tobacco abuse Plan: Right osteomyelitis and gangrene to the foot: Patient will be admitted for further evaluation and treatment. ER spoke to surgery on patient. Will continue with IV vancomycin and cefepime. Will also start IV fluids. Continue DVT prophylaxis. Blood cultures obtained. Will discuss with surgery as patient is to have above knee amputation. This will likely occur tomorrow. Will keep the patient NPO after midnight. Nephrology consulted to address acute on chronic renal disease. Need to review and restart home medications. Will provide medication for pain. Will need to determine plan of care after surgery which may include SNF vs home at discharge. Acute on chronic renal failure stage 3: Start IV fluids. Will monitor this closely. Await recommendations by nephrology. Anemia of chronic disease: Will give 1 unit of blood in preparation for surgery tomorrow. COPD: Will need to obtain home medication and restart. Tobacco abuse: Provide nicotine patch. Discharge Plan: Other (SNF vs Home) Plan to discharge in: Greater than 2 days - Advance Directives Does patient have a Living Will: No Does patient have a Durable POA for Healthcare: Yes - Code Status/Comfort Care Code Status Assessed: Yes (patient is full code) Time Spent Managing Pts Care (In Minutes): 55
[2020-10-04] MEDS ORDERED: NA CHLORIDE 0.9% 2,000 ML ONE (17:14)
[2020-10-04] MEDS ORDERED: NA CHLORIDE 0.9% 1,000 ML ONE (19:18)
--- NOTE | 2020-10-04 21:52 | CON ---
Date of Consultation: 10/04/2020 Brief Hpi: The patient is a 69-year-old female known to me from recently being seen in [facility] with significant osteomyelitis of the right foot. She had been treating this for severa l years without any significant improvement. She had multiple endovascular procedures including sten ting, ballooning, angioplasties, and attempts to revascularize this right lower extremity, but contin ued to have poor blood supply. As such, I spoke to her endovascular radiologist, Dr. Zheng and ultim ately we discussed that she had essentially no flow to the popliteal and essentially at the level of the mid SFA the cutoff of blood supply was noted at this point. She had been seen apparently for pos sible revascularization, but did not have any good options for graft revascularization. As such with a chronic nonhealing wound and severe pain, we opted to move forward with [id number] amputation. I discussed the risks, benefits, and alternatives. The patient has been seen by outpatient clinics and prepared for surgery. However, during the preop workup, her hemoglobin was noted to come back i n the 6 range and her white blood cell count was elevated significantly. As such[facility] come to the ER immediately either via 911 emergency call or to be brought in b y private vehicle. She opted to stay home on medication and came in just several hours ago to the em ergency room and I was notified. Past Medical History: Significant for COPD, lupus, anemia of chronic disease, chronic renal disease, tobacco abuse, peripheral artery disease. Past Surgical History: Includes toe amputation of the right foot, tubal ligation, multiple stents in the right lower extremity, cardiac stents. Allergies: SULFA/BACTRIM. Home Medications: Include Ventolin, baclofen, Pulmicort, Symbicort, gabapentin, Sarepta, Plaquenil, Ba ctroban, ondansetron p.o., Perforomist, Requip, clindamycin. Family History: Significant for heart disease in her father. Mother has no aortic aneurysm. Social History: She has a greater than 3 pack per day smoking history, heavy tobacco use for multipl e years. She denies alcohol or recreational drug use. Review of Systems: Ten-point review of systems other than HPI, she has weakness, fatigue and malaise as described. Othe rwise, she has no complaints at this point. Physical Examination: General: At the time of my examination, she is awake, alert, and oriented. She appears somewhat fra il and thin. Psychiatric: She is appropriate. Conversive. HEENT: She is normocephalic. Her sclerae are anicteric. Mucous membranes are somewhat dry. Oropha rynx was otherwise clear with poor dentition. Neck: Supple without JVD. Chest: Normal expansion and excursion. Cardiovascular: Slightly tachycardic. Abdomen: Soft. Extremities: Focused examination of the extremities, she continues to have a chronic osteomyelitic t ype wound of the right foot, but there is no superficial evidence of cellulitis extending beyond the foot. Skin: Otherwise warm and dry. Laboratory Data: Her white blood cell count was 19.1, hemoglobin 7.3, hematocrit of 21.9, platelet c ount 471. Her neutrophils are 87%. Her sodium 139, potassium 2.9, chloride 108, carbon dioxide 23, BUN 34, creatinine 1.5, glucose was 123. She had imaging performed, which included chest x-ray, indra hughes read as mild diffuse COPD. Assessment And Plan: This is a 69-year-old female who comes in with anemia as well as elevated white blood cell count, osteomyelitis of the right foot, previously planned for an ewtbd-gqv-yomq amputati on for tomorrow. 1.IV fluid hydration. 2.Nephrology consultation. 3.Wound care and elevation in anticipation of possible surgery tomorrow. If the patient is medicall y cleared for surgical intervention after receiving transfusion and being medically optimized, we billy l plan for surgery with the previously planned [id number] amputation of the right lower extremity . However, if for any reason she is not deemed appropriate for operative intervention, we will delay the case until patient is optimized from medical standpoint. I have discussed the risks, benefits, and alternatives of the above stated plan. The patient agrees to proceed as indicated. TK/MODL Voice ID: [id number] Report ID: [id number]
--- NOTE | 2020-10-04 22:15 | P.CNS ---
Date of Consult: 10/04/20 Reason for Consult: ARNAUD/ CKD Requesting Physician: Lebron Last Primary Care Provider: Dr. Corral; Surgery-Dr. Weber Chief Complaint: Abnormal lab History of Present Illness: 69 yo CF with history of osteomyelitis to the right foot. She has been seen by Surgery-Dr. Weber for potential surgery-above knee amputation within the next couple of days. She had lab drawn recently and found to have some abnormal lab at which point she was told to go to the ER to address. She denies any fever or chills. She has pain to the right lower ext. No nausea, vomiting and abdominal pain. Allergies sulfamethoxazole [From Bactrim] Allergy (Verified 10/03/20 16:35) Hives, throat swell trimethoprim [From Bactrim] Allergy (Verified 10/03/20 16:35) Hives, throat swell Home medications list reviewed: Yes Home Medications: Albuterol Inhaler [Ventolin Inhaler] 2 puff IH Q6H PRN 10/03/20 Baclofen 10 mg PO BID 10/03/20 Budesonide [Pulmicort] 1 mg IH DAILY 10/03/20 Budesonide/Formoterol Fumarate [Symbicort 160-4.5 Mcg Inhaler] 2 puff IH BID 10/03/20 Gabapentin 600 mg PO BID 10/03/20 Hydrocodone 5/APAP 325 [Dahlgren 5/325] 1 tab PO Q6H PRN 10/03/20 Hydroxychloroquine [Plaquenil] 200 mg PO DAILY 10/03/20 Ondansetron [Zuplenz] 4 mg PO DAILY 10/03/20 Perforomist 2 ml NEB PRN PRN 10/03/20 Ropinirole HCl [Requip] 1 mg PO BID 10/03/20 - Past Medical/Surgical History Diabetic: No -: COPD -: Lupus -: Anemia of Chronic disease -: Chronic renal disease -: Tobacco abuse -: TOE AMPUTATION ON RIGHT FOOT -: TUBAL LIGATION -: STENTS IN RIGHT FEMORAL ARTERY -: CARDIAC STENT Psychosocial/ Personal History: Patient lives at home - Family History Father Medical History: Heart disease Mother Notes: AORTIC ANEURYSM - Social History Alcohol use: No CD- Drugs: No Caffeine use: Yes Place of Residence: Home Review of Systems 10-point ROS is otherwise unremarkable General: Weakness, Malaise Respiratory: Dry Integumentary: Lesions Neurological: Weakness Physical Examination General: Oriented x3, Cooperative HEENT: Atraumatic Neck: Supple Respiratory: Clear to auscultation bilaterally Cardiovascular: No edema, Regular rate/rhythm Gastrointestinal: Soft and benign, Non-distended Musculoskeletal: No clubbing, No contractures Integumentary: No rashes, No cyanosis, Skin breakdown Neurological: Normal speech Laboratory Data (last 24 hrs) 10/04/20 14:16: Sodium 139, Potassium 2.9 L*, BUN 34 H, Creatinine 1.56 H, Glucose 123 H 10/04/20 14:16: WBC 19.10 H, Hgb 7.3 L*, Hct 21.9 L, Plt Count 471 H Imagings Data: EXAM DESCRIPTION: RAD - Chest Single View - 10/04/2020 2:37 pm CLINICAL HISTORY: Pre-op for right AKA Chest pain. COMPARISON: Chest Pa And Lat (2 Views) dated 10/03/2020 FINDINGS: Portable technique limits examination quality. The lungs are mildly emphysematous grossly clear. The heart is normal in size. No displaced fractures. IMPRESSION: Mild diffuse COPD. Conclusions/Impression: A/P: Continue the current POC and Medications other than the changes listed. AM Labs PRN. Recommend daily weight. Please see the orders for complete details. ARNAUD in the setting of hypotension and hypovolemia CKD III -Continue IVF with NS -No NSAIDs Hypokalemia -Replete potassium IFG -Consider RISS Anemia in chronic illness -Transfuse PRBC Osteomyelitis of the right foot with septic shock -Continue IVF -IVF bolus for hypotension -Continue Cefepime and Vancomycin -Follow up with surgery for planned AKA Case reviewed with Amilcar Borrero. Thank you kindly for the consultation.
[2020-10-04] MEDS: NA CHLORIDE 0.9% 1,000 ML IV SCH (22:54)
[2020-10-04] MEDS ORDERED: ALBUTEROL 2.5 MG/3 ML NEB SOL NEB PRN (22:54)
[2020-10-04] MEDS: HEPARIN 5000 UNIT/ML 1 ML VIAL SQ SCH (22:54)
[2020-10-04] MEDS ORDERED: ONDANSETRON 4 MG/2 ML VIAL IV PRN (22:54)
[2020-10-04] MEDS: ARFORMOTEROL TARTRATE 15 MCG/2 ML VIAL.NEB NEB SCH (22:54)
[2020-10-04] MEDS ORDERED: ACETAMINOPHEN 500 MG TAB PO PRN (22:54)
[2020-10-05] MEDS: TRAMADOL HCL 50 MG TAB PO PRN ×2 (00:26→22:35)
[2020-10-05] MEDS ORDERED: TRAMADOL HCL 50 MG TAB ONE (00:42)
[2020-10-05 01:19] VITALS: BMI 17.2
[2020-10-05] MEDS ORDERED: HEPARIN 5000 UNIT/ML 1 ML VIAL ONE (01:38)
[2020-10-05] MEDS ORDERED: NA CHLORIDE 0.9% 250 ML ONE ×3 (01:38→12:05)
[2020-10-05] MEDS ORDERED: NA CHLORIDE 0.9% 1,000 ML ONE (01:42)
--- NOTE | 2020-10-05 04:33 | EKG ---
Test Date: 2020-10-04 Test Time: 14:15:03 School Bus Driver/Mechanic: TANJA MEASUREMENT RESULTS: Intervals: Rate: 79 VT: 126 QRSD: 94 QT: 410 QTc: 470 [place]: P: 10 VT: 126 QRS: 25 T: 20 INTERPRETIVE STATEMENTS: Normal sinus rhythm Nonspecific ST and T wave abnormality Abnormal ECG Compared to ECG 10/03/2020 16:25:42 No significant changes Electronically Signed On 10-05-20 04:32:15 CDT by Ariel Del Rio
[2020-10-05] MEDS: NA CHLORIDE 0.9% 1,000 ML IV SCH ×3 (05:00→19:55)
--- NOTE | 2020-10-05 05:30 | P.INFCA ---
Sepsis Focused Assessment - Focused Assessment Complete? Sepsis Focused Assessment Completed?: Yes - Sepsis Screen Result Severe Sepsis: Positive Septic Shock: Negative - Evaluation Current stage of sepsis: Severe sepsis - Vital Signs Reviewed: Yes Respiratory Rate: 16 O2 Sat by Pulse Oximetry: 98 - Examination Date exam was performed: 10/04/20 Time exam was performed: 20:00 Heart: Regular rate/rhythm Lungs: Clear bilaterally Peripheral pulses: 2+ Slightly diminished Peripheral pulse location: Radial Capillary refill: <2 Seconds Skin examination: Normal turgor
[2020-10-05 05:43] LABS: Absolute Lymphocytes (CBC) 1.2 K/uL (0.7-4.9); Basophils % 0.2 % (0-1.3); Hematocrit 21.7 % (36.0-45.0); MPV 8.4 fL (7.6-11.3)
[2020-10-05] MEDS: PANTOPRAZOLE 40MG TABLET PO SCH (06:30)
[2020-10-05 06:34] LABS: Albumin 2.2 g/dL (3.4-5.0); Bilirubin Total 0.4 mg/dL (0.2-1.0); Potassium 3.4 mmol/L (3.5-5.1); Protein, Total 5.7 g/dL (6.4-8.2)
[2020-10-05] MEDS ORDERED: PANTOPRAZOLE 40MG TABLET PO ONE (06:42)
[2020-10-05] MEDS: ARFORMOTEROL TARTRATE 15 MCG/2 ML VIAL.NEB NEB SCH ×2 (08:00→19:20)
[2020-10-05] MEDS ORDERED: KCL 20 MEQ/100 mL IVPB 20 MEQ/100 ML BAG IV SCH (08:00)
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
[2020-10-05] MEDS: HEPARIN 5000 UNIT/ML 1 ML VIAL SQ SCH (09:00)
[2020-10-05] MEDS ORDERED: CEFEPIME 1 GM/VIAL IV SCH (09:00)
[2020-10-05] MEDS: CEFEPIME/SWI 1gm 10 ML IV SCH (09:00)
[2020-10-05] MEDS ORDERED: VANCOMYCIN 1 GM in NA CHLORIDE 0.9% 500 ML IVPB SCH (09:00)
[2020-10-05] MEDS ORDERED: FENTANYL CITR 100 MCG/2 ML ONE (11:20)
[2020-10-05] MEDS ORDERED: LIDOCAINE 1% MPF 5 ML VIAL ONE (11:20)
[2020-10-05] MEDS ORDERED: propofoL 200 MG/20 ML VIAL IV ONE (11:20)
[2020-10-05] MEDS ORDERED: NS 0.9% VIAL 10 ML ONE (11:56)
[2020-10-05] MEDS ORDERED: EPHEDRINE SULF 50 MG/ML VIAL ONE (11:56)
[2020-10-05] MEDS ORDERED: DIPHENHYDRAMINE 50 MG/ML VIAL ONE (12:08)
[2020-10-05] MEDS ORDERED: LIDOCAINE 1% MPF 30 ML VIAL ONE (12:09)
[2020-10-05 13:11] LABS: Platelet Estimate ADEQ; Platelets, Giant PRESENT; White Blood Cell Scan OK (OK)
[2020-10-05 13:12] LABS: Blood Morphology Comment NOT SEEN (NOT SEEN)
--- NOTE | 2020-10-05 13:29 | P.OP ---
Publications Sales Representative: Lucille Castillo Preoperative diagnosis: RIGHT leg osteomyelitis and peripheral artery disease Postoperative diagnosis: RIGHT leg osteomyelitis and peripheral artery disease Primary procedure: RIGHT Above knee amputation Anesthesia: Spinal + Local Estimated blood loss: <50cc Specimen: right lower extremity Findings: calcified vessels, stents in place in SFA / Popleteil Complications: None Transferred to: Recovery Room Condition: Good
[2020-10-05] MEDS ORDERED: FUROSEMIDE 20 MG/ 2ML VIAL IV ONE (14:14)
[2020-10-05] MEDS: HYDROCODONE/APAP 7.5/325 MG TAB PO PRN (15:05)
[2020-10-05] MEDS: NICOTINE 21 MG/PAT TD SCH (15:07)
--- NOTE | 2020-10-05 16:49 | EKG ---
Test Date: 2020-10-04 Test Time: 14:16:05 Digital Color Press Operator: TANJA MEASUREMENT RESULTS: Intervals: Rate: 78 [place]: 140 QRSD: 90 QT: 340 QTc: 387 [place]: P: 69 [place]: 140 QRS: 25 T: 167 INTERPRETIVE STATEMENTS: Normal sinus rhythm Nonspecific T wave abnormality Abnormal ECG Compared to ECG 10/04/2020 14:15:03 T-wave abnormality now present ST (T wave) deviation no longer present Electronically Signed On 10-05-20 16:47:51 CDT by Ariel Del Rio
[2020-10-05 17:14] LABS: Hematocrit 29.3 % (36.0-45.0)
[2020-10-05] MEDS ORDERED: POTASSIUM 25 MEQ EFFERV TAB PO ONE (17:27)
[2020-10-05] MEDS: MORPHINE 2 MG/ML SYR IV PRN (23:48)
--- NOTE | 2020-10-06 00:52 | OP ---
Date of Procedure: 10/05/2020 Surgeon: Dequan Weber MD, Engraver [employer]: Lucille Castillo. Preoperative Diagnosis: Right leg osteomyelitis and peripheral arterial disease. Postoperative Diagnosis: Right leg osteomyelitis and peripheral arterial disease. Procedure: Right above the knee amputation. Anesthesia: Spinal plus local. Estimated Blood Loss: Less than 50 cc. Specimen: Right lower extremity. Findings: Calcified vessels, stent in place in the superficial femoral artery/popliteal arteries. Complications: None. Disposition: The patient transferred to recovery room in good condition. Brief Hpi: The patient is a 69-year-old female with significant peripheral arterial disease who had been seen in Wound Care for several years with a nonhealing wound and osteomyelitis of the right foot . She had multiple endovascular procedures to attempt to revascularize her lower extremity including multiple stents placed throughout the superficial femoral artery. I had a conversation with her end ovascular radiologist who had placed her vascular access and stated that she had essentially shutdown of these with nothing but collateral flow below the level of the mid SFA. He had attempted multiple revascularization attempts and did not feel she was a good candidate for any attempt at jump bypass graft due to no sufficient landing zone for bypass, and as such, she was referred to me for an amputa tion. She was thought to be a poor candidate for a [id number] amputation as her blood supply is very poor below the knee. As such, we opted to discuss with the patient and her above the kn ee amputation, which she agreed to proceed with. She had been in chronic pain for some long period o f time and was very despondent due to the level of the pain she had had and significant peripheral ar terial disease. However, she continued to smoke heavily greater than, she states, between 2 and 3 pa cks of cigarettes per day. As such, she was deemed appropriate for operative intervention. She was actually admitted to the hospital after missing a preoperative visit as I referred her to the emergen cy room when she was discovered to have a hemoglobin of 6.5 and an elevated white blood cell count. Therefore, she was brought in as an inpatient, optimized in the perioperative period and taken to the operating room today. Procedure In Detail: After patient was brought to the operating room, she was prepped and draped in the usual sterile fashion after adequate anesthesia was achieved. I opted for approximately 3 to 4 c m above the popliteal bone as an initial demarcation part portion for the skin mapping. I performed a marking of the skin for a fishmouth type incision by demarcating the area after the patient had rec eived her spinal anesthesia and had been verified to be insensate at this level. I then used a 10 bl anastasiia down to subcutaneous tissues achieving meticulous hemostasis using electrocautery. The sciatic v ein was encircled and tied off on the proximal distal aspects with the 3-0 silk sutures and ligated. The dissection continued down circumferentially around through the subcutaneous tissues to the muscl e plane. I began first by the anterior medial muscle, anterior quadriceps muscle compartment using e lectrocautery. I dissected down through this meticulously with good hemostasis on the anterior media l compartment. I ultimately dissected down to the level of the SFA/popliteal artery. It was found t o be quite firm and rigid and had very minimal pulsatile effect to it. As such, it appeared to be so mewhat occluded, although I suspect a stent was evident in this area due to the firmness and easily p alpability of this area and the inflammatory change and scar tissue around the artery. I vesta tripp dissected and skeletonized the artery SFA and the SFV and encircled these 2 structures with in itially a 0 silk tie. At this point after the proximal distal control was achieved with simple sutur es, I placed clamps on the proximal distal aspect and ligated the structure. It was quite difficult to cut as such a stent was appreciated inside this lumen. It was a metallic type stent. As such, I dissected higher up in this area until the stent was not evident in this area, but the patient had pa lpable stents evident quite proximally and as such I opted not to continue chasing these stents. At this point, I ligated the SFA/popliteal artery at a higher level after clamping it appropriately and running a 0 Prolene suture in a running fashion to double ligate the structure. It was once again li gated at this point and the SFV was then encircled and tied off using 0 silk sutures without evidence of complication. I then continued the dissection in the posterior compartment using a Soo knife and removed the posterior tissues protecting the skin flaps throughout. I then prepared the specimen for bone saw at this point. I sized the bone for appropriate skin flap and using the power bone saw , I cut through the femur in a straight fashion and after this was removed, I sent the lower extremit y off for pathologic examination. I then proceeded to bevel the anterior surface of the femur and us ed a rasp to smooth this area out until it was nice and smoothed with rounded edges and bevelling cir cumferentially around the femoral incision. At this point, the wound was copiously irrigated multipl e times until completely clear and cleansed. No additional hemostatic measures were required. I fou nd the sciatic nerve and dissected it proximally and did a high ligation on this using a 0 silk tie a nd I instilled lidocaine in the proximal aspect of this sciatic nerve. At this point, I irrigated th e area once again and checked to ensure that the area was clean without any additional maneuvers requ ired. At this point, no hemostatic maneuvers were required for . Sciatic nerve was ligated. . At this point, I reapproximated the deep tissue planes/muscu lar planes by reapproximating the fascia over the bone of the femur using interrupted 2-0 silk suture s and when the plane was reapproximated appropriately, I closed the deep dermal plane with interrupte d 3-0 Vicryls over the top and irrigated the area once again and then closed the skin with elisabet. This was a tension-free closure. A sterile dressing was then applied to the lower extremity and the patient had an immobilizer placed. The patient tolerated the procedure well without evidence of comp lication and was transferred to PACU in good condition. All counts were correct at the end of the ca se. TK/MODL Voice ID: [id number] Report ID: [id number]
[2020-10-06] MEDS: HYDROCODONE/APAP 7.5/325 MG TAB PO PRN ×4 (01:40→20:14)
[2020-10-06] MEDS: KCL 20 MEQ/100 mL IVPB 20 MEQ/100 ML BAG IV SCH ×3 (01:40→07:49)
[2020-10-06 04:44] LABS: Absolute Lymphocytes (CBC) 1.3 K/uL (0.7-4.9); Basophils % 0.4 % (0-1.3); Hematocrit 26.1 % (36.0-45.0); Lymphocytes % 7.4 % (15.3-44.8); MPV 8.6 fL (7.6-11.3); RBC Red Blood Cell Count 2.87 M/uL (3.86-4.86)
[2020-10-06 05:01] LABS: ALT/SGPT 20 U/L (12-78); AST/SGOT 27 U/L (15-37); Albumin 1.9 g/dL (3.4-5.0); BUN Blood Urea Nitrogen 14 mg/dL (7-18); Bicarbonate 22 mmol/L (21-32); Bilirubin Total 0.5 mg/dL (0.2-1.0); Glucose Level 102 mg/dL (74-106); Magnesium 1.8 mg/dL (1.8-2.4); Protein, Total 5.4 g/dL (6.4-8.2); Sodium Level 143 mmol/L (136-145)
[2020-10-06 05:26] LABS: Alkaline Phosphatase ND U/L (45-117)
[2020-10-06] MEDS: MORPHINE 2 MG/ML SYR IV PRN (05:39)
[2020-10-06] MEDS: PANTOPRAZOLE 40MG TABLET PO SCH (05:39)
[2020-10-06] MEDS: NA CHLORIDE 0.9% 1,000 ML IV SCH (05:40)
[2020-10-06] MEDS ORDERED: VANCOMYCIN 750 MG in NA CHLORIDE 0.9% 150 ML IVPB SCH ×4 (06:00)
[2020-10-06] MEDS: TRAMADOL HCL 50 MG TAB PO PRN (06:43)
[2020-10-06] MEDS: NICOTINE 21 MG/PAT TD SCH (07:50)
--- NOTE | 2020-10-06 07:50 | P.PN ---
Subjective Date of Service: 10/06/20 Primary Care Provider: Dr. Corral; Surgery-Dr. Weber Chief Complaint: Abnormal lab Subjective: Improving, Doing well Physical Examination - Vital Signs Temperature: 99.1 F Blood Pressure: 137/56 Pulse: 67 Respirations: 20 Pulse Ox (%): 93 Assessment & Plan Discharge Plan: Other (jail facility) Plan to discharge in: 48 Hours Physician Review Additional Text: Physical exam: Patient doing well. Pain well controlled. Patient had above knee amputation of the right extremity yesterday. Heart: Regular rate rhythm Lungs: Clear to auscultation Abdomen: Soft nontender nondistended Extremities: Patient had right above knee amputation. Bandage in place. Patient doing well. Impression: Severe sepsis with right osteomyelitis of the foot with underlying PVD status post right above knee amputation Acute on chronic renal failure stage 3 with hypokalemia and dehydration Anemia of chronic disease COPD Tobacco abuse Plan: Severe sepsis with right osteomyelitis of the foot with underlying PVD status post right above knee amputation: Patient has done well. Continue with IV fluids. Hemoglobin stable after 2 units of blood. Continue IV antibiotic therapy. Await blood culture results. Will restart anti coagulation therapy tomorrow after discussion with surgery. Physical therapy and occupational therapy ordered for today. Plan of care to address in detail with patient. Patient prefers to go to skilled facility in [facility] [place]. Will discuss with social services counselor. Anticipate possible discharge to skilled facility as early as Saturday or Saturday. Acute on chronic renal failure stage 3 with hypokalemia and dehydration: Continue IV fluids. Overall stable. Anemia of chronic disease: Hemoglobin stable after 2 units of blood. Continue to monitor closely. Maintain hemoglobin above 8.0. COPD: Continue with COPD medication Tobacco abuse: Continue nicotine patch. Time Spent Managing Pts Care (In Minutes): 55
[2020-10-06] MEDS: CEFEPIME/SWI 1gm 10 ML IV SCH (08:31)
[2020-10-06] MEDS: ARFORMOTEROL TARTRATE 15 MCG/2 ML VIAL.NEB NEB SCH ×2 (08:35→19:30)
[2020-10-06] MEDS: GABAPENTIN 300 MG CAP PO SCH ×2 (09:30→20:13)
[2020-10-06] MEDS: NACHLORIDE 0.45% 1,000 ML IV SCH ×2 (09:30→18:44)
[2020-10-06] MEDS: ROPINIROLE HCL 1 MG TAB PO SCH ×2 (09:30→20:13)
[2020-10-06] MEDS: HYDROXYCHLOROQUINE 200MG TAB PO SCH (10:10)
[2020-10-06] MEDS ORDERED: MAGNESIUM SULFATE 1 gm IVPB 1 GM/100 ML BAG IV ONE (12:00)
--- NOTE | 2020-10-06 12:31 | P.PN ---
Subjective Date of Service: 10/06/20 Primary Care Provider: Dr. Corral; Surgery-Dr. Weber Chief Complaint: Abnormal lab Subjective: Improving (Patient is now pain free.) Physical Examination - Vital Signs Temperature: 97.5 F Blood Pressure: 114/64 Pulse: 59 Respirations: 16 Pulse Ox (%): 93 - Physical Exam General: Alert, In no apparent distress, Cooperative Respiratory: Normal air movement Cardiovascular: Regular rate/rhythm Musculoskeletal: Other (RIGHT AKA site is clean and dry, flaps pink and viable.) Assessment And Plan - Current Problems (Diagnosis) (1) Osteomyelitis Current Visit: Yes Status: Acute Qualifiers: Osteomyelitis location: foot Laterality: right (2) PAD (peripheral artery disease) Current Visit: Yes Status: Acute - Plan - Daily dressing changes reviewed with patient and daughter - will transfer to [facility] for ongoing rehab - follow up in 2 weeks Physician Review Additional Text: Physical exam: Patient doing well. Pain well controlled. Patient had above knee amputation of the right extremity yesterday. Heart: Regular rate rhythm Lungs: Clear to auscultation Abdomen: Soft nontender nondistended Extremities: Patient had right above knee amputation. Bandage in place. Patient doing well. Impression: Severe sepsis with right osteomyelitis of the foot with underlying PVD status post right above knee amputation Acute on chronic renal failure stage 3 with hypokalemia and dehydration Anemia of chronic disease COPD Tobacco abuse Plan: Severe sepsis with right osteomyelitis of the foot with underlying PVD status post right above knee amputation: Patient has done well. Continue with IV fluids. Hemoglobin stable after 2 units of blood. Continue IV antibiotic therapy. Await blood culture results. Will restart anti coagulation therapy to [place] after discussion with surgery. Physical therapy and occupational therapy ordered for today. Plan of care to address in detail with patient. Patient prefers to go to skilled facility in [facility] [place]. Will discuss with director of social work. Anticipate possible discharge to skilled facility as early as Saturday or Saturday. Acute on chronic renal failure stage 3 with hypokalemia and dehydration: Continue IV fluids. Overall stable. Anemia of chronic disease: Hemoglobin stable after 2 units of blood. Continue to monitor closely. Maintain hemoglobin above 8.0. COPD: Continue with COPD medication Tobacco abuse: Continue nicotine patch.
[2020-10-06] MEDS ORDERED: POTASSIUM CL SA 10 MEQ TAB PO ONE ×2 (13:12→19:40)
[2020-10-06] MEDS: IPRATROPIUM BROM 0.5MG/2.5ML NEB PRN (19:30)
--- NOTE | 2020-10-06 19:37 | P.PN ---
Date of Service: 10/05/20 Vital Signs Temp Pulse Resp BP Pulse Ox 99.8 F 68 18 117/50 L 94 10/06/20 16:00 10/06/20 16:00 10/06/20 16:00 10/06/20 16:00 10/06/20 16:00 Medications Acetaminophen (Acetaminophen 500 Mg Tab) 500 mg PO Q4HP PRN PRN Reason: TEMP > 101' F Hydrocodone Bitart/Acetaminophen (Hydrocodone/Apap 7.5/325 Mg Tab) 1 tab PO Q6H PRN PRN Reason: Pain scale 5-7 (Moderate) Last Admin: 10/06/20 13:57 Dose: 1 tab Documented by: Albuterol Sulfate (Albuterol 2.5 Mg/3 Ml Neb Myrna) 2.5 mg NEB [id number] PRN PRN Reason: SHORTNESS OF BREATH Arformoterol Tartrate (Arformoterol Tartrate 15 Mcg/2 Ml Vial.Neb) 15 mcg NEB BIDRESP [facility] Last Admin: 10/06/20 08:35 Dose: 15 mcg Documented by: Enoxaparin Sodium (Enoxaparin 40 Mg/0.4 Ml) 40 mg SQ DAILY [facility] Gabapentin (Gabapentin 300 Mg Cap) 600 mg PO BID [facility] Last Admin: 10/06/20 09:30 Dose: 600 mg Documented by: Hydroxychloroquine Sulfate (Hydroxychloroquine 200mg Tab) 200 mg PO DAILY [facility] Last Admin: 10/06/20 10:10 Dose: 200 mg Documented by: Cefepime HCl (Maxipime 1 Gm/10 Ml Ivp) 10 mls @ 120 mls/hr IV DAILY [facility] Last Admin: 10/06/20 08:31 Dose: 10 mls Documented by: Vancomycin HCl 750 mg/ Sodium (Chloride) 250 mls @ 150 mls/hr IVPB Q24H [facility] Sodium Chloride (Sodium Chloride 0.45%) 1,000 mls @ 100 mls/hr IV .Q10H [facility] Last Admin: 10/06/20 18:44 Dose: 1,000 mls Documented by: Ipratropium [place] (Ipratropium Brom 0.5mg/2.5ml) 0.5 mg NEB [id number] PRN PRN Reason: SHORTNESS OF BREATH Morphine Sulfate (Morphine 2 Mg/Ml Syr) 2 mg IV Q4H PRN PRN Reason: Pain scale 5-7 (Moderate) Last Admin: 10/06/20 05:39 Dose: 2 mg Documented by: Nicotine (Nicotine 21 Mg/Pat) 21 mg TD DAILY [facility] Last Admin: 10/06/20 07:50 Dose: 21 mg Documented by: Ondansetron HCl (Ondansetron 4 Mg/2 Ml Vial) 4 mg IV Q6HP PRN PRN Reason: NAUSEA / VOMITING Pantoprazole Sodium (Pantoprazole 40mg Tablet) 40 mg PO DAILYAC [facility]; Protocol Last Admin: 10/06/20 05:39 Dose: 40 mg Documented by: Ropinirole HCl (Ropinirole Hcl 1 Mg Tab) 1 mg PO BID [facility] Last Admin: 10/06/20 09:30 Dose: 1 mg Documented by: Sodium Chloride (Flush Normal Saline 10 Ml) 10 ml IV BID [facility] Last Admin: 10/06/20 07:52 Dose: 10 ml Documented by: Tramadol HCl (Tramadol Hcl 50 Mg Tab) 50 mg PO TID PRN PRN Reason: Pain scale 2-4 (Mild) Last Admin: 10/06/20 06:43 Dose: 50 mg Documented by: Assessment/ Plan: Nephrology No acute cardiac or pulmonary complaints. No CP or SOB. Feeling better sp hr right AKA No acute events overnight. Vitals, medications, blood work and imaging reviewed in the chart. Physical Examination General: Oriented x3, Cooperative HEENT: Atraumatic Neck: Supple Respiratory: Clear to auscultation bilaterally Cardiovascular: No edema, Regular rate/rhythm Gastrointestinal: Soft and benign, Non-distended Musculoskeletal: No clubbing, No contractures Integumentary: No rashes, No cyanosis, Skin breakdown Neurological: Normal speech Laboratory Data (last 24 hrs) 10/04/20 14:16: Sodium 139, Potassium 2.9 L*, BUN 34 H, Creatinine 1.56 H, Glucose 123 H 10/04/20 14:16: WBC 19.10 H, Hgb 7.3 L*, Hct 21.9 L, Plt Count 471 H Imagings Data: EXAM DESCRIPTION: RAD - Chest Single View - 10/04/2020 2:37 pm CLINICAL HISTORY: Pre-op for right AKA Chest pain. COMPARISON: Chest Pa And Lat (2 Views) dated 10/03/2020 FINDINGS: Portable technique limits examination quality. The lungs are mildly emphysematous grossly clear. The heart is normal in size. No displaced fractures. IMPRESSION: Mild diffuse COPD. Conclusions/Impression: A/P: Continue the current POC and Medications other than the changes listed. AM Labs PRN. Recommend daily weight. Please see the orders for complete details. ARNAUD in the setting of hypotension and hypovolemia -Continue IVF with NS -No NSAIDs Hypokalemia -Replete potassium IFG -Consider RISS Anemia in chronic illness -Transfuse PRBC PRN Osteomyelitis of the right foot sp AKA -Continue IVF -IVF bolus for hypotension prn -Continue Cefepime and Vancomycin -Follow up with surgery
--- NOTE | 2020-10-06 19:45 | P.PN ---
Date of Service: 10/06/20 Vital Signs Temp Pulse Resp BP Pulse Ox 99.8 F 68 18 117/50 L 94 10/06/20 16:00 10/06/20 16:00 10/06/20 16:00 10/06/20 16:00 10/06/20 16:00 Medications Acetaminophen (Acetaminophen 500 Mg Tab) 500 mg PO Q4HP PRN PRN Reason: TEMP > 101' F Hydrocodone Bitart/Acetaminophen (Hydrocodone/Apap 7.5/325 Mg Tab) 1 tab PO Q6H PRN PRN Reason: Pain scale 5-7 (Moderate) Last Admin: 10/06/20 13:57 Dose: 1 tab Documented by: Albuterol Sulfate (Albuterol 2.5 Mg/3 Ml Neb Myrna) 2.5 mg NEB [id number] PRN PRN Reason: SHORTNESS OF BREATH Arformoterol Tartrate (Arformoterol Tartrate 15 Mcg/2 Ml Vial.Neb) 15 mcg NEB BIDRESP [facility] Last Admin: 10/06/20 08:35 Dose: 15 mcg Documented by: Enoxaparin Sodium (Enoxaparin 40 Mg/0.4 Ml) 40 mg SQ DAILY [facility] Gabapentin (Gabapentin 300 Mg Cap) 600 mg PO BID [facility] Last Admin: 10/06/20 09:30 Dose: 600 mg Documented by: Hydroxychloroquine Sulfate (Hydroxychloroquine 200mg Tab) 200 mg PO DAILY [facility] Last Admin: 10/06/20 10:10 Dose: 200 mg Documented by: Cefepime HCl (Maxipime 1 Gm/10 Ml Ivp) 10 mls @ 120 mls/hr IV DAILY [facility] Last Admin: 10/06/20 08:31 Dose: 10 mls Documented by: Vancomycin HCl 750 mg/ Sodium (Chloride) 250 mls @ 150 mls/hr IVPB Q24H [facility] Sodium Chloride (Sodium Chloride 0.45%) 1,000 mls @ 100 mls/hr IV .Q10H [facility] Last Admin: 10/06/20 18:44 Dose: 1,000 mls Documented by: Ipratropium [place] (Ipratropium Brom 0.5mg/2.5ml) 0.5 mg NEB [id number] PRN PRN Reason: SHORTNESS OF BREATH Morphine Sulfate (Morphine 2 Mg/Ml Syr) 2 mg IV Q4H PRN PRN Reason: Pain scale 5-7 (Moderate) Last Admin: 10/06/20 05:39 Dose: 2 mg Documented by: Nicotine (Nicotine 21 Mg/Pat) 21 mg TD DAILY [facility] Last Admin: 10/06/20 07:50 Dose: 21 mg Documented by: Ondansetron HCl (Ondansetron 4 Mg/2 Ml Vial) 4 mg IV Q6HP PRN PRN Reason: NAUSEA / VOMITING Pantoprazole Sodium (Pantoprazole 40mg Tablet) 40 mg PO DAILYAC [facility]; Protocol Last Admin: 10/06/20 05:39 Dose: 40 mg Documented by: Potassium Chloride (Potassium Cl Sa 10 Meq Tab) 20 meq PO 1X ONE Stop: 10/06/20 19:41 Ropinirole HCl (Ropinirole Hcl 1 Mg Tab) 1 mg PO BID [facility] Last Admin: 10/06/20 09:30 Dose: 1 mg Documented by: Sodium Chloride (Flush Normal Saline 10 Ml) 10 ml IV BID [facility] Last Admin: 10/06/20 07:52 Dose: 10 ml Documented by: Tramadol HCl (Tramadol Hcl 50 Mg Tab) 50 mg PO TID PRN PRN Reason: Pain scale 2-4 (Mild) Last Admin: 10/06/20 06:43 Dose: 50 mg Documented by: Assessment/ Plan: Nephrology No acute cardiac or pulmonary complaints. No CP or SOB. Feeling better sp hr right AKA No acute events overnight. Vitals, medications, blood work and imaging reviewed in the chart. Physical Examination General: Oriented x3, Cooperative HEENT: Atraumatic Neck: Supple Respiratory: Clear to auscultation bilaterally Cardiovascular: No edema, Regular rate/rhythm Gastrointestinal: Soft and benign, Non-distended Musculoskeletal: No clubbing, No contractures Integumentary: No rashes, No cyanosis, Skin breakdown Neurological: Normal speech Laboratory Data (last 24 hrs) 10/04/20 14:16: Sodium 139, Potassium 2.9 L*, BUN 34 H, Creatinine 1.56 H, Glucose 123 H 10/04/20 14:16: WBC 19.10 H, Hgb 7.3 L*, Hct 21.9 L, Plt Count 471 H Imagings Data: EXAM DESCRIPTION: RAD - Chest Single View - 10/04/2020 2:37 pm CLINICAL HISTORY: Pre-op for right AKA Chest pain. COMPARISON: Chest Pa And Lat (2 Views) dated 10/03/2020 FINDINGS: Portable technique limits examination quality. The lungs are mildly emphysematous grossly clear. The heart is normal in size. No displaced fractures. IMPRESSION: Mild diffuse COPD. Conclusions/Impression: A/P: Continue the current POC and Medications other than the changes listed. AM Labs PRN. Recommend daily weight. Please see the orders for complete details. ARNAUD in the setting of hypotension and hypovolemia -Continue IVF with NS -No NSAIDs Hypokalemia -Replete potassium IFG -Consider RISS Severe malnutrition -Encourage nutrition including protein supplementation Anemia in chronic illness -Transfuse PRBC PRN Osteomyelitis of the right foot sp AKA -Continue IVF -IVF bolus for hypotension prn -Continue Cefepime and Vancomycin -Follow up with surgery
[2020-10-06] MEDS ORDERED: MELATONIN 5 MG TABLET PO PRN (20:20)
[2020-10-07] MEDS: MORPHINE 2 MG/ML SYR IV PRN ×2 (00:23→10:22)
[2020-10-07] MEDS: TRAMADOL HCL 50 MG TAB PO PRN (04:15)
[2020-10-07] MEDS: NACHLORIDE 0.45% 1,000 ML IV SCH ×3 (04:16→23:15)
[2020-10-07] MEDS: PANTOPRAZOLE 40MG TABLET PO SCH (05:45)
[2020-10-07] MEDS: VANCOMYCIN 750 MG in NA CHLORIDE 0.9% 250 ML IVPB SCH (05:45)
[2020-10-07 06:16] LABS: Absolute Lymphocytes (CBC) 1.6 K/uL (0.7-4.9); Basophils % 0.5 % (0-1.3); Hematocrit 26.2 % (36.0-45.0); Lymphocytes % 13.6 % (15.3-44.8); MPV 8.4 fL (7.6-11.3); RBC Red Blood Cell Count 2.87 M/uL (3.86-4.86)
[2020-10-07] MEDS: HYDROCODONE/APAP 7.5/325 MG TAB PO PRN ×2 (06:48→21:15)
[2020-10-07 06:52] LABS: ALT/SGPT 19 U/L (12-78); AST/SGOT 20 U/L (15-37); Albumin 1.6 g/dL (3.4-5.0); BUN Blood Urea Nitrogen 12 mg/dL (7-18); Bicarbonate 22 mmol/L (21-32); Bilirubin Total 0.3 mg/dL (0.2-1.0); Glucose Level 86 mg/dL (74-106); Potassium 4.3 mmol/L (3.5-5.1); Protein, Total 5.2 g/dL (6.4-8.2); Sodium Level 139 mmol/L (136-145)
[2020-10-07 07:23] LABS: Alkaline Phosphatase ND U/L (45-117)
[2020-10-07] MEDS: ENOXAPARIN 40 MG/0.4 ML SQ SCH (07:51)
[2020-10-07] MEDS: NICOTINE 21 MG/PAT TD SCH (07:51)
[2020-10-07] MEDS: ROPINIROLE HCL 1 MG TAB PO SCH ×2 (07:52→21:12)
[2020-10-07] MEDS: HYDROXYCHLOROQUINE 200MG TAB PO SCH (07:52)
[2020-10-07] MEDS: GABAPENTIN 300 MG CAP PO SCH ×2 (07:52→21:12)
[2020-10-07] MEDS: CEFEPIME/SWI 1gm 10 ML IV SCH (07:53)
[2020-10-07] MEDS: ARFORMOTEROL TARTRATE 15 MCG/2 ML VIAL.NEB NEB SCH ×2 (09:23→19:20)
--- NOTE | 2020-10-07 09:43 | P.PN ---
Subjective Date of Service: 10/07/20 Primary Care Provider: Dr. Corral; Surgery-Dr. Weber Chief Complaint: Abnormal lab Subjective: Improving Physical Examination - Vital Signs Temperature: 97.3 F Blood Pressure: 127/57 Pulse: 60 Respirations: 20 Pulse Ox (%): 96 - Physical Exam General: Alert, In no apparent distress HEENT: Mucous membr. moist/pink Respiratory: Normal air movement Musculoskeletal: Other (RIGHT AKA site is clean and dry. elisabet in place) Assessment And Plan - Current Problems (Diagnosis) (1) Osteomyelitis Current Visit: Yes Status: Acute Qualifiers: Osteomyelitis location: foot Laterality: right (2) PAD (peripheral artery disease) Current Visit: Yes Status: Acute - Plan - Daily dressing changes reviewed with patient and daughter - will transfer to [facility] for ongoing rehab - follow up in 2 weeks Physician Review Additional Text: Physical exam: Patient doing well. Pain well controlled. Patient had above knee amputation of the right extremity yesterday. Heart: Regular rate rhythm Lungs: Clear to auscultation Abdomen: Soft nontender nondistended Extremities: Patient had right above knee amputation. Bandage in place. Patient doing well. Impression: Severe sepsis with right osteomyelitis of the foot with underlying PVD status post right above knee amputation Acute on chronic renal failure stage 3 with hypokalemia and dehydration Anemia of chronic disease COPD Tobacco abuse Plan: Severe sepsis with right osteomyelitis of the foot with underlying PVD status post right above knee amputation: Patient has done well. Continue with IV fluids. Hemoglobin stable after 2 units of blood. Continue IV antibiotic therapy. Await blood culture results. Will restart anti coagulation therapy tomorrow after discussion with surgery. Physical therapy and occupational therapy ordered for today. Plan of care to address in detail with patient. Patient prefers to go to skilled facility in [facility]. Will discuss with psych social worker. Anticipate possible discharge to skilled facility as early as Saturday or Saturday. Acute on chronic renal failure stage 3 with hypokalemia and dehydration: Continue IV fluids. Overall stable. Anemia of chronic disease: Hemoglobin stable after 2 units of blood. Continue to monitor closely. Maintain hemoglobin above 8.0. COPD: Continue with COPD medication Tobacco abuse: Continue nicotine patch.
[2020-10-07 10:55] LABS: Urine Appearance CLEAR; Urine Bilirubin NEGATIVE (NEG); Urine Blood NEGATIVE (NEG); Urine Color YELLOW; Urine Glucose NEGATIVE (NEG); Urine Protein 1+ (NEG); Urine Specific Gravity 1.015 (1.005-1.030); Urine Urobilinogen 0.2 mg/dL (0.2-1.0)
[2020-10-07 10:56] LABS: Urine Microscopic Reflex ORDER UMIC
[2020-10-07 11:28] LABS: Urine Bacteria <20 /HPF (<20); Urine RBC NONE SEEN /HPF (NONE SEEN)
--- NOTE | 2020-10-07 13:33 | P.PN ---
Subjective Date of Service: 10/07/20 Primary Care Provider: Dr. Corral; Surgery-Dr. Weber Chief Complaint: Abnormal lab Subjective: Doing well Physical Examination - Vital Signs Temperature: 97.3 F Blood Pressure: 127/57 Pulse: 60 Respirations: 20 Pulse Ox (%): 96 Assessment & Plan Discharge Plan: Other ([facility] facility) Plan to discharge in: 24 Hours Physician Review Additional Text: Physical exam: Patient doing well. Pain well controlled. Patient had above knee amputation of the right extremity yesterday. Heart: Regular rate rhythm Lungs: Clear to auscultation Abdomen: Soft nontender nondistended Extremities: Patient had right above knee amputation. Bandage in place. Patient doing well. Impression: Severe sepsis with right osteomyelitis of the foot with underlying PVD status post right above knee amputation Acute on chronic renal failure stage 3 with hypokalemia and dehydration Anemia of chronic disease COPD Tobacco abuse Plan: Severe sepsis with right osteomyelitis of the foot with underlying PVD status post right above knee amputation: Patient stable. Continue IV fluids. Hemoglobin stable. Continue IV antibiotic therapy. Case discussed with surgery who spoke to the family and patient at length. Patient willing to go to a skilled facility to continue therapy and rehab. Await approval. Acute on chronic renal failure stage 3 with hypokalemia and dehydration: This appears resolved. Will hold IV fluids if stable and taking good oral intake. Anemia of chronic disease: Hemoglobin stable after 2 units of blood. Continue to monitor closely. Maintain hemoglobin above 8.0. COPD: Continue with COPD medication Tobacco abuse: Continue nicotine patch. Time Spent Managing Pts Care (In Minutes): 55
--- NOTE | 2020-10-07 22:02 | P.PN ---
Date of Service: 10/07/20 Vital Signs Temp Pulse Resp BP Pulse Ox 97.9 F 67 16 117/95 H 98 10/07/20 19:50 10/07/20 19:50 10/07/20 21:15 10/07/20 19:50 10/07/20 21:15 Medications Acetaminophen (Acetaminophen 500 Mg Tab) 500 mg PO Q4HP PRN PRN Reason: TEMP > 101' F Hydrocodone Bitart/Acetaminophen (Hydrocodone/Apap 7.5/325 Mg Tab) 1 tab PO Q6H PRN PRN Reason: Pain scale 5-7 (Moderate) Last Admin: 10/07/20 21:15 Dose: 1 tab Documented by: Albuterol Sulfate (Albuterol 2.5 Mg/3 Ml Neb Myrna) 2.5 mg NEB [id number] PRN PRN Reason: SHORTNESS OF BREATH Arformoterol Tartrate (Arformoterol Tartrate 15 Mcg/2 Ml Vial.Neb) 15 mcg NEB BIDRESP [facility] Last Admin: 10/07/20 19:20 Dose: 15 mcg Documented by: Enoxaparin Sodium (Enoxaparin 40 Mg/0.4 Ml) 40 mg SQ DAILY [facility] Last Admin: 10/07/20 07:51 Dose: 40 mg Documented by: Gabapentin (Gabapentin 300 Mg Cap) 600 mg PO BID [facility] Last Admin: 10/07/20 21:12 Dose: 600 mg Documented by: Hydroxychloroquine Sulfate (Hydroxychloroquine 200mg Tab) 200 mg PO DAILY [facility] Last Admin: 10/07/20 07:52 Dose: 200 mg Documented by: Cefepime HCl (Maxipime 1 Gm/10 Ml Ivp) 10 mls @ 120 mls/hr IV DAILY [facility] Last Admin: 10/07/20 07:53 Dose: 10 mls Documented by: Vancomycin HCl 750 mg/ Sodium (Chloride) 250 mls @ 150 mls/hr IVPB Q24H [facility] Last Admin: 10/07/20 05:45 Dose: 250 mls Documented by: Sodium Chloride (Sodium Chloride 0.45%) 1,000 mls @ 100 mls/hr IV .Q10H [facility] Last Admin: 10/07/20 13:36 Dose: 1,000 mls Documented by: Ipratropium Lilly (Ipratropium Brom 0.5mg/2.5ml) 0.5 mg NEB [id number] PRN PRN Reason: SHORTNESS OF BREATH Last Admin: 10/06/20 19:30 Dose: 0.5 mg Documented by: Melatonin (Melatonin 5 Mg Tablet) 10 mg PO BEDTIME PRN PRN PRN Reason: INSOMNIA Last Admin: 10/06/20 20:24 Dose: 10 mg Documented by: Morphine Sulfate (Morphine 2 Mg/Ml Syr) 2 mg IV Q4H PRN PRN Reason: Pain scale 5-7 (Moderate) Last Admin: 10/07/20 10:22 Dose: 2 mg Documented by: Nicotine (Nicotine 21 Mg/Pat) 21 mg TD DAILY [facility] Last Admin: 10/07/20 07:51 Dose: 21 mg Documented by: Ondansetron HCl (Ondansetron 4 Mg/2 Ml Vial) 4 mg IV Q6HP PRN PRN Reason: NAUSEA / VOMITING Pantoprazole Sodium (Pantoprazole 40mg Tablet) 40 mg PO DAILYAC [facility]; Protocol Last Admin: 10/07/20 05:45 Dose: 40 mg Documented by: Ropinirole HCl (Ropinirole Hcl 1 Mg Tab) 1 mg PO BID [facility] Last Admin: 10/07/20 21:12 Dose: 1 mg Documented by: Sodium Chloride (Flush Normal Saline 10 Ml) 10 ml IV BID [facility] Last Admin: 10/07/20 21:12 Dose: 10 ml Documented by: Tramadol HCl (Tramadol Hcl 50 Mg Tab) 50 mg PO TID PRN PRN Reason: Pain scale 2-4 (Mild) Last Admin: 10/07/20 04:15 Dose: 50 mg Documented by: Assessment/ Plan: Nephrology No acute cardiac or pulmonary complaints. No CP or SOB. Feeling better sp her right AKA No acute events overnight. Vitals, medications, blood work and imaging reviewed in the chart. Physical Examination General: Oriented x3, Cooperative HEENT: Atraumatic Neck: Supple Respiratory: Clear to auscultation bilaterally Cardiovascular: No edema, Regular rate/rhythm Gastrointestinal: Soft and benign, Non-distended Musculoskeletal: No clubbing, No contractures Integumentary: No rashes, No cyanosis, Skin breakdown Neurological: Normal speech Laboratory Data (last 24 hrs) 10/04/20 14:16: Sodium 139, Potassium 2.9 L*, BUN 34 H, Creatinine 1.56 H, Glucose 123 H 10/04/20 14:16: WBC 19.10 H, Hgb 7.3 L*, Hct 21.9 L, Plt Count 471 H Imagings Data: EXAM DESCRIPTION: RAD - Chest Single View - 10/04/2020 2:37 pm CLINICAL HISTORY: Pre-op for right AKA Chest pain. COMPARISON: Chest Pa And Lat (2 Views) dated 10/03/2020 FINDINGS: Portable technique limits examination quality. The lungs are mildly emphysematous grossly clear. The heart is normal in size. No displaced fractures. IMPRESSION: Mild diffuse COPD. Conclusions/Impression: A/P: Continue the current POC and Medications other than the changes listed. AM Labs PRN. Recommend daily weight. Please see the orders for complete details. ARNAUD in the setting of hypotension and hypovolemia -Continue IVF with NS -No NSAIDs Hypokalemia -Replete potassium prn IFG -Consider RISS Severe malnutrition -Encourage nutrition including protein supplementation Anemia in chronic illness -Transfuse PRBC PRN Osteomyelitis of the right foot sp AKA -Continue IVF -IVF bolus for hypotension prn -Continue Cefepime and Vancomycin -Follow up with surgery
[2020-10-08] MEDS: TRAMADOL HCL 50 MG TAB PO PRN ×2 (00:25→09:20)
[2020-10-08 03:33] VITALS: O2SAT 98
[2020-10-08] MEDS: PANTOPRAZOLE 40MG TABLET PO SCH (05:57)
[2020-10-08] MEDS: VANCOMYCIN 750 MG in NA CHLORIDE 0.9% 250 ML IVPB SCH (06:39)
[2020-10-08] MEDS: HYDROCODONE/APAP 7.5/325 MG TAB PO PRN (06:49)
--- NOTE | 2020-10-08 07:33 | P.DS ---
Admission Date: 10/04/20 Discharge Date: 10/08/20 Primary Care Provider: Dr. Corral; Surgery-Dr. Weber Disposition: TRANSFER TO SNF - MEDICAL Discharge Condition: GOOD Reason for Admission: Abnormal lab Consultations: Nephrology=Dr. Naidu Surgery-Dr. Weber Procedures: COVID: Negative Surgery: Above knee amputation performed Medical Problem List: Severe sepsis with right osteomyelitis of the foot with underlying PVD status post right above knee amputation Acute on chronic renal failure stage 3 with hypokalemia and dehydration Anemia of chronic disease COPD Tobacco abuse Lupus Restless leg syndrome Chronic pain Brief History of Present Illness: 69 yo CF with history of osteomyelitis to the right foot. She has been seen by Surgery-Dr. Weber for potential surgery-above knee amputation within the next couple of days. She had lab drawn recently and found to have some abnormal lab at which point she was told to go to the ER to address. She denies any fever or chills. She has pain to the right lower ext. No nausea, vomiting and abdominal pain. In the ER she was found to be anemic with hemoglobin of 7.3. Prior hemoglobin was around 6. WBC was 19. NA 139, K 2.9, BUN 34, creatinine 1.56 and GFR was 33. BP low. Patient appears dehydrated. Patient given IV antibiotic therapy in the emergency room. ER physician spoke to surgeon. Surgeon desires patient to be admitted for treatment an eventual surgery. Hospital Course: Patient presented with severe sepsis related to right osteomyelitis of the foot. Patient also with underlying PVD. Patient was evaluated by surgery. Surgical intervention was required. Patient had right above-knee amputation. Patient tolerated the procedure well. During the course of her stay patient received blood. 2 units given. Hemoglobin now stable. Patient has done well. Initially patient wanted to go home with home health but it was recommended that she go to a skilled facility to continue rehab. Patient agreed. At discharge patient will continue at the skilled facility to continue rehabilitation. Recommend follow up with surgery as directed. Continue with current wound care as directed by surgery. At discharge patient will continue with aspirin 81 mg daily. Patient with acute on chronic renal disease stage III with hypokalemia and dehydration. Renal function now back to baseline. Recommend to recheck lab-BMP in 1-2 weeks to monitor her progress. Patient was seen by nephrology during the course of her stay. Patient with anemia of chronic disease. Patient received 2 units of blood during the course of her stay. Hemoglobin now stable. At discharge she will continue with multi vitamin with iron daily. Recommend to recheck lab-CBC in 1-2 weeks to monitor her progress. Patient with underlying COPD. This has remained stable. At discharge she will continue with Symbicort 2 puffs twice daily and Pro air 2 puffs 3 times a day as needed for shortness of breath. Patient with tobacco abuse. Nicotine patch will be provided. Tobacco cessation addressed in detail. Patient with history of lupus. At discharge she will continue with Plaquenil 200 mg daily. Patient also takes pain medication. She will continue with gabapentin 600 mg twice daily. Patient with restless leg syndrome. At discharge she will continue with Requip 1 mg twice daily. Patient with chronic pain. As mentioned above patient will continue with gabapentin 600 mg twice daily. Patient also takes hydrocodone as needed. Patient did not require baclofen during the course of her stay. Will recommend to discontinue this medication. Vital Signs/Physical Exam: Temp Pulse Resp BP Pulse Ox 98.2 F 82 18 117/56 L 92 10/08/20 03:56 10/08/20 03:56 10/08/20 06:49 10/08/20 03:56 10/08/20 06:49 General: Alert, In no apparent distress, Oriented x3, Cooperative HEENT: Atraumatic Neck: Supple Respiratory: Clear to auscultation bilaterally, Normal air movement Cardiovascular: Normal pulses, Regular rate/rhythm Gastrointestinal: Normal bowel sounds, Soft and benign, Non-distended, No tende rness, No masses, No rebound, No guarding Integumentary: Other (Patient did well post operatively. Bandages in place to the right above knee amputation) Neurological: Normal speech, Normal strength at 5/5 x4 extr, Normal tone, Normal affect Laboratory Data at Discharge: WBC 11.70 K/uL (4.3-10.9) H D 10/07/20 05:37 Hgb 8.9 g/dL (12.0-15.0) L 10/07/20 05:37 Hct 26.2 % (36.0-45.0) L 10/07/20 05:37 Plt Count 399 K/uL (152-406) 10/07/20 05:37 Sodium 139 mmol/L (136-145) 10/07/20 05:37 Potassium 4.3 mmol/L (3.5-5.1) 10/07/20 05:37 BUN 12 mg/dL (7-18) 10/07/20 05:37 Creatinine 0.73 mg/dL (0.55-1.3) 10/07/20 05:37 Glucose 86 mg/dL (74-106) 10/07/20 05:37 Magnesium 2.0 mg/dL (1.8-2.4) 10/07/20 05:37 Total Bilirubin 0.3 mg/dL (0.2-1.0) 10/07/20 05:37 AST 20 U/L (15-37) 10/07/20 05:37 ALT 19 U/L (12-78) 10/07/20 05:37 Alkaline Phosphatase ND 10/07/20 05:37 Home Medications: Albuterol Inhaler [Ventolin Inhaler*] 2 puff IH Q6H PRN 10/03/20 Budesonide/Formoterol Fumarate [Symbicort 160-4.5 Mcg Inhaler] 2 puff IH BID 10/03/20 Gabapentin 600 mg PO BID 10/03/20 Hydrocodone 5/APAP 325 [Handley 5/325*] 1 tab PO Q6H PRN 10/03/20 Hydroxychloroquine [Plaquenil*] 200 mg PO DAILY 10/03/20 Ondansetron [Zuplenz] 4 mg PO DAILY 10/03/20 Ropinirole HCl [Requip*] 1 mg PO BID 10/03/20 Aspirin [Aspirin EC 81 MG] 81 mg PO DAILY #90 tablet. 10/08/20 Multivitamin with Iron [Multivitamins with Iron] 1 each PO DAILY #90 tablet 10/08/20 Nicotine [Nicoderm*] 21 mg TD DAILY #30 patch.td24 10/08/20 New Medications: Aspirin [Aspirin EC 81 MG] 81 mg PO DAILY #90 tablet. Multivitamin with Iron [Multivitamins with Iron] 1 each PO DAILY #90 tablet Nicotine [Nicoderm*] 21 mg TD DAILY #30 patch.td24 Physician Discharge Instructions: Patient presented with severe sepsis related to right osteomyelitis of the foot. Patient also with underlying PVD. Patient was evaluated by surgery. Surgical intervention was required. Patient had right above-knee amputation. Patient tolerated the procedure well. During the course of her stay patient received blood. 2 units given. Hemoglobin now stable. Patient has done well. Initially patient wanted to go home with home health but it was recommended that she go to a skilled facility to continue rehab. Patient agreed. At discharge patient will continue at the skilled facility to continue rehabilitation. Recommend follow up with surgery as directed. Continue with current wound care as directed by surgery. At discharge patient will continue with aspirin 81 mg daily. Patient with acute on chronic renal disease stage III with hypokalemia and dehydration. Renal function now back to baseline. Recommend to recheck lab-BMP in 1-2 weeks to monitor her progress. Patient was seen by nephrology during the course of her stay. Patient with anemia of chronic disease. Patient received 2 units of blood during the course of her stay. Hemoglobin now stable. At discharge she will continue with multi vitamin with iron daily. Recommend to recheck lab-CBC in 1-2 weeks to monitor her progress. Patient with underlying COPD. This has remained stable. At discharge she will continue with Symbicort 2 puffs twice daily and Pro air 2 puffs 3 times a day as needed for shortness of breath. Patient with tobacco abuse. Nicotine patch will be provided. Tobacco cessation addressed in detail. Patient with history of lupus. At discharge she will continue with Plaquenil 200 mg daily. Patient also takes pain medication. She will continue with gabapentin 600 mg twice daily. Patient with restless leg syndrome. At discharge she will continue with Requip 1 mg twice daily. Patient with chronic pain. As mentioned above patient will continue with rosibel apentin 600 mg twice daily. Patient also takes hydrocodone as needed. Patient did not require baclofen during the course of her stay. Will recommend to discontinue this medication. Diet: Regular Activity: Non-weight bearing ([facility]) Followup: Dequan Weber MD [ACTIVE - CAN ADMIT] - Janusz Corral MD [Primary Care Provider] - Time spent managing pt's care (in minutes): 55
[2020-10-08] MEDS: IPRATROPIUM BROM 0.5MG/2.5ML NEB PRN (08:55)
[2020-10-08] MEDS: ARFORMOTEROL TARTRATE 15 MCG/2 ML VIAL.NEB NEB SCH (08:55)
[2020-10-08] MEDS: ENOXAPARIN 40 MG/0.4 ML SQ SCH (09:00)
[2020-10-08] MEDS: CEFEPIME/SWI 1gm 10 ML IV SCH (09:20)
[2020-10-08] MEDS: NICOTINE 21 MG/PAT TD SCH (09:20)
[2020-10-08] MEDS: ROPINIROLE HCL 1 MG TAB PO SCH (09:21)
[2020-10-08] MEDS: HYDROXYCHLOROQUINE 200MG TAB PO SCH (09:21)
[2020-10-08] MEDS: GABAPENTIN 300 MG CAP PO SCH (09:22)
[2020-10-08 12:02] VITALS: BP 117/58; TEMP 99.2
--- NOTE | 2020-10-09 10:27 | CON ---
Date of Consultation: 10/05/2020 Reason For Consultation: Cardiac clearance for gangrene surgery by Dr. Weber. History Of Present Illness: Ms. Carlos is a 69-year-old woman. Has had a history of COPD, lupus, coronary artery disease status post PCI and stent, comes in with gangrene, planning for surgery on he r. The patient denied any cardiac symptoms at this point. Denied chest pain, nausea, vomiting, diap horesis, PND, orthopnea, pedal edema, palpitations, or syncope. Had recent negative testing from a h eart standpoint by her school resource officer. Her EKG is nonspecific. Chest x-ray shows COPD. She had a hemo globin of 7.2, creatinine 1.56, potassium is 2.9. Past Medical History: As stated earlier. Allergies: ALLERGIC TO SULFA. Review of Systems: Negative. Social History: Negative. Family History: Negative. Medications: At home include inhalers and Plaquenil. Physical Examination: Vital Signs: Stable, afebrile. HEENT: Negative. Neck: Supple without any bruit, lymphadenopathy, JVD, or thyromegaly. Chest: Clear to auscultation and percussion. Cardiac: Revealed a regular rhythm and rate without any murmurs, gallops, or rubs. Abdomen: Benign. Extremities: Revealed no clubbing, cyanosis, or edema. She does have gangrene. Diagnostic Data: As stated earlier. Impression And Plan: The patient with gangrenous foot requiring surgery, cleared from a cardiac [place]. Has had a history of coronary artery disease and stent, but no chest pain or congestive hear t failure symptoms at the present. Chest x-ray shows chronic obstructive pulmonary disease. I think the patient needs to be hydrated. She needs her potassium is supplemented. She may need blood basilio sfusions before her surgery, but from a cardiac standpoint, I think she is at low risk from a periope rative mortality standpoint, I will clear her and I will be available for questions if the need arise sElidia BARRIOS/SHANELLE Voice ID: [id number] Report ID: [id number]
== END 2020-10-08 12:30 | DRG 853 ==
LOC: ER 10:47 → ERHOLD 16:01 → 4TH 10-05 14:15
PROVIDERS: ADMIT Family Medicine; ATTEND Family Medicine
PROC: 30233N1 Transfusion of Nonautologous Red Blood Cells into Peripheral Vein, Percutaneous Approach (ICD-10-PCS; 2020-10-05)
PROC: 0Y6C0Z1 Detachment at Right Upper Leg, High, Open Approach (ICD-10-PCS; principal; 2020-10-05 09:15)
DX: A41.9 Sepsis, unspecified organism (principal); E43 Unspecified severe protein-calorie malnutrition; Z68.1 Body mass index [BMI] 19.9 or less, adult; M86.8X7 Other osteomyelitis, ankle and foot; I96 Gangrene, not elsewhere classified; N17.9 Acute kidney failure, unspecified; F17.210 Nicotine dependence, cigarettes, uncomplicated; F03.90 Unspecified dementia, unspecified severity, without behavioral disturbance, psychotic disturbance, mood disturbance, and anxiety; J44.9 Chronic obstructive pulmonary disease, unspecified; N18.30 Chronic kidney disease, stage 3 unspecified; D63.8 Anemia in other chronic diseases classified elsewhere; E87.6 Hypokalemia; E86.0 Dehydration; M32.9 Systemic lupus erythematosus, unspecified; G62.9 Polyneuropathy, unspecified; G25.81 Restless legs syndrome; G89.29 Other chronic pain; I25.2 Old myocardial infarction; R65.20 Severe sepsis without septic shock; R73.01 Impaired fasting glucose; Z79.82 Long term (current) use of aspirin; Z95.5 Presence of coronary angioplasty implant and graft; Z88.1 Allergy status to other antibiotic agents; Z89.411 Acquired absence of right great toe; Z79.899 Other long term (current) drug therapy; Z79.51 Long term (current) use of inhaled steroids; Z98.51 Tubal ligation status; Z20.822 Contact with and (suspected) exposure to COVID-19
CPT/HCPCS: 36415; 36430; 71045; 80048; 80053; 80202; 81003; 81015; 83605; 83735; 84132; 84145; 85014; 85018; 85025; 86850; 86900; 86901; 87040; 87086; 87088; 87205; 88300; 88305; 88307; 88311; 93005; 94640; 97110; 97161; 97530; 99285; J0692; J0696; J1200; J1644; J1650; J1940; J2270; J2704; J3010; J3370; J3475; J3480; J7030; J7050; J7605; P9016